=== PATIENT | female | born 1945 | race African-American/Black ===

== ENCOUNTER 2019-12-19 14:09 | Inpatient (IN) | payer MEDICARE, OTHER ==
[2019-12-19] MEDS ORDERED: Acetaminophen 650 MG Suppository PR PRN (20:23)
[2019-12-19 20:50] LABS: Anion Gap 15 mmol/L (10-20); BUN (Urea Nitrogen) 50 mg/dL (9.8-20.1); Calc. Creatinine Clearance 0 mL/min (70-130); Calcium 8.5 mg/dL (7.8-10.44); Carbon Dioxide 15 mmol/L (23-31); Chloride 112 mmol/L (98-107); Estimated GFR-MDRD 24; Glucose 82 mg/dL (83-110); Magnesium 2.3 mg/dL (1.6-2.6); Potassium 5.2 mmol/L (3.5-5.1); Sodium 137 mmol/L (136-145)
[2019-12-19] MEDS ORDERED: Dextrose 5% in Water 1,000 ML IV PRN (20:55)
[2019-12-19] MEDS ORDERED: Dextrose 50% Abboject 50 ML SYRINGE SLOW IVP PRN (20:55)
[2019-12-19] MEDS ORDERED: Benzonatate 100 MG CAP PO PRN (21:26)
[2019-12-19] MEDS ORDERED: guaiFENesin 200 MG TAB PO PRN (21:26)
[2019-12-19] MEDS: Sodium Chloride 0.9% 1,000 ML IV SCH (22:29)
[2019-12-19] MEDS: Acetaminophen 325 MG TAB PO PRN (22:30)
[2019-12-19 22:53] VITALS: BMI 32.2
--- NOTE | 2019-12-19 23:17 | ULT ---
BILATERAL LOWER EXTREMITY VENOUS DUPLEX STUDY: Date: 12/19/2019 INDICATION: Lower extremity pain and edema. Elevated D-Dimer. FINDINGS: Deep veins of both lower extremities evaluated with ultrasound and Doppler, with color Doppler, spect ral analysis, and compression. Deep veins of both lower extremities show normal blood flow and compression. No evidence of deep veno us thrombosis. IMPRESSION: Negative bilateral lower extremity venous duplex study. POS: AGW
[2019-12-20 00:15] LABS: Bilirubin Negative (Negative); Blood, Urine Negative (Negative); Clarity Clear (Clear); Glucose, Urine (Dipstick) Normal (Negative); Ketone, Urine Negative (Negative); Leukocyte Negative Leu/uL (Negative); Nitrite Negative (Negative); Protein, Urine (Dipstick) 100 mg/dL (Neg-Trace); RBC/HPF 0-3 HPF (0-3); Specific Gravity, Urine 1.013 (1.002-1.036); Squamous Epithelial 0-3 HPF (0-3); Urobilinogen Normal mg/dL (Less than 2); WBC/HPF 0-3 HPF (0-3); pH, Urine 5.5 (5.0-9.0)
[2019-12-20 00:16] LABS: Bacteria/HPF Rare-Few HPF (None Seen)
[2019-12-20 00:17] LABS: Urine Culture Reflex No No
[2019-12-20 05:21] LABS: #Lymphocytes 1.6 thou/uL (1.20-3.40); #Monocytes 0.3 thou/uL (0.11-0.59); #Neutrophils 3.4 thou/uL (1.40-6.50); %Basophils 0.2 % (0.0-1.0); %Eosinophils 0.1 % (0.0-10.0); %Monocytes 6.3 % (0.0-10.0); %Neutrophils 63.4 % (42.0-75.0); Hemoglobin 8.4 g/dL (12.0-16.0); Mean Corpuscular HGB CONC 30.6 g/dL (32.0-36.0); Mean Corpuscular Hemoglobin 27.3 pg (27.0-31.0); Mean Corpuscular Volume 89.3 fL (78.0-98.0); Mean Platelet Volume 8.2 fL (7.4-10.4); Platelet Count 343 thou/uL (130-400); RBC Distribution Width 14.8 % (11.5-14.5); Red Blood Cell (RBC) Count 3.07 mill/uL (4.20-5.40); White Blood Cell (WBC) Count 5.4 thou/uL (4.8-10.8)
[2019-12-20 05:31] LABS: Anion Gap 15 mmol/L (10-20); BUN (Urea Nitrogen) 47 mg/dL (9.8-20.1); Calc. Creatinine Clearance 27 mL/min (70-130); Calcium 7.9 mg/dL (7.8-10.44); Carbon Dioxide 17 mmol/L (23-31); Chloride 111 mmol/L (98-107); Estimated GFR-MDRD 26; Glucose 74 mg/dL (83-110); Potassium 4.8 mmol/L (3.5-5.1); Sodium 138 mmol/L (136-145)
--- NOTE | 2019-12-20 06:51 | HP ---
TIME OF ASSESSMENT: 2000 hours. CHIEF COMPLAINT: Cough and is feeling generally unwell. HISTORY OF PRESENT ILLNESS: Ms. Pham is a 74-year-old woman who was initially seen at the emergency department in [place] when she presented with complaints of feeling generally weak and tired for the last 3 days. She had been seen in the ER at that time and tested for COVID, which has come back positive. The patient states that she continues to have a poor appetite. Denies any nausea or vomiting. Reports having a cough productive of yellow phlegm. Denies any hemoptysis. She has been feeling feverish at home, but has not taken her temperature. Denies any chest pain, palpitations, or shortness of breath. Has not had any changes with her bowel movements or urine. She had laboratory studies done in the emergency department that showed she had acute on chronic renal failure with a creatinine of 3.24 and GFR of 17. The patient also noted to have an elevated D-dimer, but due to the renal function, could not have a CT angiogram done. She was treated with Lovenox and a V/Q scan was ordered. She also received 1 amp of sodium bicarb and 1 g of calcium gluconate. Her laboratory studies indicated a bicarb of 14, chloride of 108, and calcium of 8.3. Her CBC is notable for a white count of 5.4, hemoglobin 9.2, hematocrit 30.7, platelets 325, neutrophils 16% and 4% bands. She had a chest x-ray done, which showed no significant acute intrathoracic disease. On arrival to the emergency department here, she received 1 L of normal saline. PAST MEDICAL HISTORY: 1. CAD. 2. GERD. 3. Hypertension. 4. Diabetes mellitus. 5. Hyperlipidemia. 6. Anxiety. PAST SURGICAL HISTORY: Coronary artery stent in the past. SOCIAL HISTORY: The patient denies any tobacco use, alcohol consumption, or illicit drug use. She lives with her family at home and is fully independent. FAMILY HISTORY: Mother had a history of coronary artery disease and in her 60s. ALLERGIES: CODEINE CAUSES HALLUCINATION. CURRENT MEDICATIONS: 1. Ranexa. 2. Clonidine. 3. Clopidogrel. 4. Omeprazole. 5. Diltiazem. 6. Atorvastatin. 7. Linzess. 8. Garlic. 9. Aspirin. 10. . 11. Nifedipine. PHYSICAL EXAMINATION: GENERAL: The patient appears tired, but is in no acute distress. She is found resting comfortably on the stretcher, but very agitated over waiting a long time to go up to her room and states she has not been fed and is also thirsty. VITAL SIGNS: Temperature 99.8, pulse 72, blood pressure 165/69, respirations 22, O2 saturation 94% on room air. HEENT: Normocephalic and atraumatic. Pupils are equal, round, reactive to light. Sclerae icterus. Oropharynx is clear. NECK: Supple. No lymphadenopathy. LUNGS: Clear to auscultation bilaterally without any wheezes, rales, or rhonchi. CARDIAC: Regular rate and rhythm. ABDOMEN: Soft, nontender, nondistended. Normoactive bowel sounds present. No guarding or rigidity. No renal angle tenderness. EXTREMITIES: No lower leg swelling or edema. NEUROLOGICAL: Alert and oriented x3. SKIN: Warm and dry. INVESTIGATIONS: As mentioned above in HPI. IMPRESSION AND PLAN: Ms. Pham is a 74-year-old woman being admitted for management of the followin. Acute renal failure. The patient with a BUN of 56, creatinine of 3.24, GFR of 17, compared to GFR being in the mid 40s in 2016. No recent labs for comparison, but the patient also appears clinically dehydrated. She has been given 1 L of normal saline since arriving to the emergency department here. We will continue with IV fluids. We will monitor her renal function and repeat BMP now to assess for improvement in her renal function. She is awaiting imaging for possible pulmonary embolism. 2. Elevated D-dimer. V/Q scan has been ordered as GFR is for CT angiogram. We will obtain venous Dopplers to rule out deep venous thrombosis, and if positive, we will go ahead and continue Lovenox, which was started over at [place]. Otherwise, we will hold off on further anticoagulation. 3. Leukocytosis with bandemia. The patient with a cough productive of yellow sputum. However, chest x-ray is unremarkable. She has been tested for COVID and positive per test done at [place] [facility] 3 days ago. We will obtain urinalysis to rule out any underlying urinary tract infection. 4. Hypertension. Monitor blood pressure and reconcile home medications once verified. 5. Hyperlipidemia. Reconcile , which she takes at home. 6. Gastroesophageal reflux disease. We will resume omeprazole, which she takes at home. 7. Diabetes mellitus. Reconcile home medications and monitor blood glucose. 8. Coronary artery disease. Reconcile home medications and continue to monitor troponin. The patient had a negative troponin done at outside emergency room and repeat has been ordered by emergency department physician. 9. General weakness. We will place consultation with Physical Therapy and Occupational Therapy. We will also add orthostatic vital signs to ensure the patient is not orthostatic. 10. Code status is full. Surrogate decision maker is her daughter, Darcie Pham. Job ID: [id number]
[2019-12-20] MEDS ORDERED: Famotidine 20 MG TAB PO SCH (09:00)
[2019-12-20] MEDS: Cholecalciferol 1,000 UNITS (25 MCG) TAB PO SCH (09:54)
[2019-12-20] MEDS: Thiamine 100 MG TAB PO SCH (09:54)
[2019-12-20] MEDS: Zinc Sulfate 220 MG CAP PO SCH (09:54)
[2019-12-20] MEDS: Ascorbic Acid 500 mg Chewable Tablet PO SCH (09:54)
--- NOTE | 2019-12-20 11:11 | PDOC.HOSPP ---
- Subjective Encounter Date: 12/20/19 Encounter Time: 11:09 Subjective: Patient states she feels much better after resting all night. She had spiked her temp early hours this morning and has not had any more spikes in her temperature since then. Denies any complaints. States her cough has settled. Known to be COVID +. Blood cultures were done and thus far show no growth. UA was negative. CXR done yesterday also unremarkable. No skin changes/wounds. - Objective Vital Signs & Weight: Vital Signs (12 hours) Temp Pulse Resp BP Pulse Ox 12/20/19 09:50 99.1 F 70 32 H 163/72 H 100 12/20/19 04:00 99.0 F 72 22 H 155/71 H 95 12/20/19 00:07 99.5 F 77 24 H 133/60 95 Weight Weight 170 lb 11.2 oz Result Diagrams: 12/20/19 04:54 12/20/19 04:54 Radiology Reviewed by me: Yes EKG Reviewed by me: Yes Hospitalist ROS - Review of Systems Constitutional: reports: fever (overnight, improved. Low grade temp since then. ), other (fatigue, improving compared to yesterday) Eyes: denies: pain, vision change, conjunctivae inflammation, eyelid inflammation, redness, other ENT: denies: ear pain, ear discharge, nose pain, nose discharge, nose congestion , mouth pain, mouth swelling, throat pain, throat swelling, other Respiratory: reports: cough (improving, productive for yellow sputum yesterday evening.) Cardiovascular: denies: chest pain, palpitations, orthopnea, paroxysmal noc. dyspnea, edema, light headedness, other Gastrointestinal: denies: nausea, vomiting, abdominal pain, diarrhea, constipation, melena, hematochezia, other Genitourinary: denies: dysuria, frequency, incontinence, hematuria, retention, other Musculoskeletal: denies: neck pain, shoulder pain, arm pain, back pain, hand pain, leg pain, foot pain, other Skin: denies: rash, lesions, daysi, bruising, other Neurological: denies: weakness, numbness, incoordination, change in speech, confusion, seizures, other - Medication Medications: Active Medications Generic Name Dose Route Start Last Admin Trade Name Freq PRN Reason Stop Dose Admin Acetaminophen 650 mg 12/19/19 20:23 12/19/19 22:30 Tylenol PO 650 mg Q4H PRN Administration Headache/Fever/Mild Pain (1-3) Ascorbic Acid 1,000 mg 12/20/19 09:00 12/20/19 09:54 Vitamin C PO 1,000 mg DAILY MARLEN Administration Cholecalciferol 1,000 units 12/20/19 09:00 12/20/19 09:54 Vitamin D3 PO 1,000 units DAILY MARLEN Administration Sodium Chloride 1,000 mls @ 70 mls/hr 12/19/19 21:00 12/19/19 22:29 Normal Saline 0.9% IV 1,000 mls .[id number] MARLEN Administration Thiamine HCl 100 mg 12/20/19 09:00 12/20/19 09:54 Thiamine PO 100 mg DAILY MARLEN Administration Zinc Sulfate 220 mg 12/20/19 09:00 12/20/19 09:54 Zinc Sulfate PO 220 mg DAILY MARLEN Administration - Exam General Appearance: NAD, awake alert Eye: PERRL, anicteric sclera ENT: normocephalic atraumatic, moist mucosa Neck: supple, symmetric, no lymphadenopathy Heart: RRR, no murmur, no rubs, normal peripheral pulses Respiratory: CTAB, no wheezes, no rales, no ronchi, normal chest expansion Gastrointestinal: soft, non-tender, non-distended, normal bowel sounds Extremities: no edema Skin: normal turgor, no lesions, no rashes Neurological: cranial nerve grossly intact, normal sensation to touch, no weakness Musculoskeletal: normal tone, normal strength, no muscle wasting Psychiatric: normal affect, normal behavior, A&O x 3 Hosp A/P (1) Fever Code(s): R50.9 - FEVER, UNSPECIFIED Status: Acute Plan: Continues with low grade temp, no further spikes in temp since early hours this morning. Blood cultures without growth thus far. UA and CXR negative. She has a productive cough for yellows sputum. No other potential source for infection. Fever could be due to viral infection. 1. Sputum cultures requested. 2. CT chest without contrast to assess for pneumonia. 3. Lactic acid and procalcitonin. 4. Continue Tylenol for fever. (2) Tachypnea Code(s): R06.82 - TACHYPNEA, NOT ELSEWHERE CLASSIFIED Status: Acute Plan: RR elevated this am. Patient denies feeling SOB. Had an elevated d-dimer, VQ scan and Lovenox per ED notes but not done. Venous doppler negative for DVT. Will obtain CTA if renal function improved. If not will order VQ scan. ABG ordered as well (3) COVID-19 virus detected Code(s): U07.1 - COVID-19 Status: Acute Plan: Maintaining sats, no SOB, no tachypnea. Patient feeling better and without any complaints. Repeat Ferritin and CRP with tomorrows AM labs. (4) Anemia Code(s): D64.9 - ANEMIA, UNSPECIFIED Status: Chronic Plan: Trending down, could be dilutional after fluids given. No signs or symptoms of GI bleed. Will repeat H/H now. If further decline will plan to transfuse and check stool for occult blood. Iron studies ordered as well. (5) Acute on chronic renal insufficiency Code(s): N28.9 - DISORDER OF KIDNEY AND URETER, UNSPECIFIED; N18.9 - CHRONIC KIDNEY DISEASE, UNSPECIFIED Status: Acute Plan: No significant improvement with AM labs, however patient had not had anything to eat or drink while in the ED. Will repeat renal function. Continue gentle hydration. Consider nephrology consult if no improvement. (6) Diabetes mellitus Code(s): E11.9 - TYPE 2 DIABETES MELLITUS WITHOUT COMPLICATIONS Status: Chronic Plan: Continue to monitor glucose. ISS sliding scale. (7) GERD (gastroesophageal reflux disease) Code(s): K21.9 - GASTRO-ESOPHAGEAL REFLUX DISEASE WITHOUT ESOPHAGITIS Status: Acute - Plan PT/OT
[2019-12-20] MEDS ORDERED: Sodium Chloride 0.9% 1,000 ML IV SCH (11:17)
[2019-12-20] MEDS: Sodium Chloride 0.9% 1,000 ML IV SCH (11:28)
[2019-12-20 11:55] LABS: Hemoglobin 9.3 g/dL (12.0-16.0)
[2019-12-20 12:17] LABS: Lactic Acid 0.7 mmol/L (0.5-2.2)
[2019-12-20 12:49] LABS: Albumin 3.5 g/dL (3.4-4.8); Anion Gap 15 mmol/L (10-20); BUN (Urea Nitrogen) 48 mg/dL (9.8-20.1); BUN/Creatinine Ratio 21.33; Calc. Creatinine Clearance 27 mL/min (70-130); Calcium 8.6 mg/dL (7.8-10.44); Carbon Dioxide 16 mmol/L (23-31); Chloride 112 mmol/L (98-107); Estimated GFR-MDRD 26; Glucose 85 mg/dL (83-110); Iron 12 ug/dL (50-170); Iron Binding Capacity, Total 154 mcg/dL (265-497); Phosphorus 3.9 mg/dL (2.3-4.7); Potassium 5.1 mmol/L (3.5-5.1); Sodium 138 mmol/L (136-145)
[2019-12-20 13:38] LABS: Actual Bicarbonate (HCO3a) 16.6 mEq/L (22-28); Base Excess (BEa) -7.6 mEq/L (-2.0 to +3.0); CO2 Tension 29.5 mmHg (35.0-45.0); Calcium, Ionized (arterial) 1.15 mmol/L (1.12-1.30); Carboxyhemoglobin (COHb) 1.1 gm% (0.0-3.0); Hemoglobin (Hb) 10.4 g/dL (12.0-16.0); Potassium - ABG Lab 5.18 mmol/L (3.70-5.30); pH, Arterial 7.37 (7.35-7.45)
[2019-12-20 13:57] LABS: Puncture Site RRAD
[2019-12-20] MEDS ORDERED: cloNIDine 0.2 MG TAB PO PRN ×2 (14:39→18:01)
[2019-12-20] MEDS ORDERED: Dexamethasone 10 MG/ML VIAL SLOW IVP SCH (14:45)
[2019-12-20] MEDS: hydrALAZINE 25 MG TAB PO SCH ×2 (15:00→20:29)
[2019-12-20] MEDS: Acetaminophen 325 MG TAB PO PRN (15:00)
[2019-12-20] MEDS: Labetalol 100 MG TAB PO SCH ×2 (15:00→20:29)
[2019-12-20 18:45] LABS: Actual Bicarbonate (HCO3a) 15.3 mEq/L (22-28); Analyzer IN Cardio OR; CO2 Tension 27.8 mmHg (35.0-45.0); Calcium, Ionized (arterial) 1.14 mmol/L (1.12-1.30); Carboxyhemoglobin (COHb) 1.3 gm% (0.0-3.0); O2 Tension (PaO2), arterial 90.6 mmHg (> 70.0); Potassium - ABG Lab 5.08 mmol/L (3.70-5.30); pH, Arterial 7.36 (7.35-7.45)
[2019-12-20 18:49] LABS: Puncture Site RRA
[2019-12-20] MEDS: Atorvastatin Calcium 40 MG TAB PO SCH (20:29)
[2019-12-21 05:09] LABS: Anion Gap 14 mmol/L (10-20); BUN (Urea Nitrogen) 52 mg/dL (9.8-20.1); CRP (Inflammatory) 10.28 mg/dL (= or < 0.5); Calc. Creatinine Clearance 27 mL/min (70-130); Calcium 8.4 mg/dL (7.8-10.44); Carbon Dioxide 16 mmol/L (23-31); Chloride 111 mmol/L (98-107); Estimated GFR-MDRD 26; Glucose 139 mg/dL (83-110); Sodium 136 mmol/L (136-145)
[2019-12-21 06:54] LABS: Hemoglobin 8.1 g/dL (12.0-16.0); Mean Corpuscular Hemoglobin 26.9 pg (27.0-31.0); Mean Corpuscular Volume 89.6 fL (78.0-98.0); Platelet Count 392 thou/uL (130-400); RBC Distribution Width 14.6 % (11.5-14.5); Red Blood Cell (RBC) Count 3.02 mill/uL (4.20-5.40); White Blood Cell (WBC) Count 5.6 thou/uL (4.8-10.8)
[2019-12-21 08:32] LABS: #Lymphocytes 0.7 thou/uL (1.20-3.40); #Monocytes 0.2 thou/uL (0.11-0.59); #Neutrophils 4.8 thou/uL (1.40-6.50); %Eosinophils 0.1 % (0.0-10.0); %Lymphocytes 11.7 % (21.0-51.0); %Monocytes 2.7 % (0.0-10.0); %Neutrophils 85.5 % (42.0-75.0); Anisocytosis MODERATE=16-30 cells (100X) (0-5/hpf); MDiff Complete? YES; Schistocytes SLIGHT = 2-5 cells (100X) (0-1/hpf)
[2019-12-21] MEDS: Cholecalciferol 1,000 UNITS (25 MCG) TAB PO SCH (08:38)
[2019-12-21] MEDS: NIFEdipine XL 90 MG TAB PO SCH ×2 (08:38→11:17)
[2019-12-21] MEDS: Clopidogrel Bisulfate 75 MG TAB PO SCH (08:38)
[2019-12-21] MEDS: Labetalol 100 MG TAB PO SCH ×4 (08:38→21:02)
[2019-12-21] MEDS: Thiamine 100 MG TAB PO SCH (08:38)
[2019-12-21] MEDS: Aspirin 81 mg Enteric Coated Tablet PO SCH (08:38)
[2019-12-21] MEDS: hydrALAZINE 25 MG TAB PO SCH ×5 (08:38→21:01)
[2019-12-21] MEDS: Ascorbic Acid 500 mg Chewable Tablet PO SCH (08:38)
[2019-12-21] MEDS: Famotidine 20 MG TAB PO SCH (08:38)
[2019-12-21] MEDS: Loratadine 10 MG TAB PO SCH (08:38)
[2019-12-21] MEDS: Dexamethasone 4 mg/ml Vial SLOW IVP SCH (08:39)
[2019-12-21] MEDS ORDERED: Sodium Chloride 0.9% 500 ML IV SCH (09:00)
--- NOTE | 2019-12-21 09:05 | PDOC.HOSPP ---
- Subjective Encounter Date: 12/21/19 Encounter Time: 12:30 Subjective: pt up in bed no complains - Objective Vital Signs & Weight: Vital Signs (12 hours) Temp Pulse Resp BP Pulse Ox 12/21/19 08:38 57 L 12/21/19 04:32 97.9 F 57 L 28 H 117/58 L 97 12/21/19 00:07 98.1 F 60 22 H 124/59 L 100 Weight Weight 170 lb 11.2 oz I&O: 12/20/19 12/21/19 12/22/19 06:59 06:59 06:59 Intake Total 1160 Output Total 800 Balance 360 Result Diagrams: 12/21/19 04:27 12/21/19 04:27 Additional Labs: Accuchecks 12/20/19 12/20/19 12/20/19 20:40 15:58 11:17 POC Glucose 214 H 103 104 Hospitalist ROS - Review of Systems Cardiovascular: denies: chest pain, palpitations, orthopnea, paroxysmal noc. dyspnea, edema, light headedness, other Gastrointestinal: denies: nausea, vomiting, abdominal pain, diarrhea, constipation, melena, hematochezia, other Genitourinary: denies: dysuria, frequency, incontinence, hematuria, retention, other - Medication Medications: Active Medications Generic Name Dose Route Start Last Admin Trade Name Freq PRN Reason Stop Dose Admin Acetaminophen 650 mg 12/19/19 20:23 12/20/19 15:00 Tylenol PO 650 mg Q4H PRN Administration Headache/Fever/Mild Pain (1-3) Ascorbic Acid 1,000 mg 12/20/19 09:00 12/21/19 08:38 Vitamin C PO 1,000 mg DAILY MARLEN Administration Aspirin 81 mg 12/21/19 09:00 12/21/19 08:38 Ecotrin PO 81 mg DAILY MARLEN Administration Atorvastatin Calcium 40 mg 12/20/19 21:00 12/20/19 20:29 Lipitor PO 40 mg HS MARLEN Administration Cholecalciferol 1,000 units 12/20/19 09:00 12/21/19 08:38 Vitamin D3 PO 1,000 units DAILY MARLEN Administration Clopidogrel Bisulfate 75 mg 12/21/19 09:00 12/21/19 08:38 Plavix PO 75 mg DAILY MARLEN Administration Dexamethasone 6 mg 12/21/19 09:00 12/21/19 08:39 Decadron SLOW IVP 6 mg DAILY MARLEN Administration Famotidine 20 mg 12/21/19 09:00 12/21/19 08:38 Pepcid PO 20 mg 0900 MARLEN Administration Hydralazine HCl 100 mg 12/20/19 15:00 12/21/19 08:38 Apresoline PO 100 mg TID MARLEN Administration Loratadine 10 mg 12/21/19 09:00 12/21/19 08:38 Claritin PO 10 mg DAILY MARLEN Administration Ranolazine 500 mg 12/20/19 21:00 12/21/19 08:38 Ranexa PO 500 mg BID MARLEN Administration Thiamine HCl 100 mg 12/20/19 09:00 12/21/19 08:38 Thiamine PO 100 mg DAILY MARLEN Administration Zinc Sulfate 220 mg 12/20/19 09:00 12/20/19 09:54 Zinc Sulfate PO 220 mg DAILY MARLEN Administration - Exam Neck: negative: supple, symmetric, no JVD, no thyromegaly, no lymphadenopathy, no carotid bruit, JVD Heart: negative: RRR, no murmur, no gallops, no rubs, normal peripheral pulses, irregular, diminshed peripheral pulses, murmur present, II/IV, III/IV Respiratory: rhonchi Gastrointestinal: negative: soft, non-tender, non-distended, normal bowel sounds , no palpable masses, no hepatomegaly, no splenomegaly, no bruit, no guarding, no rigidity, tender to palpation, distended, diminished bowl sounds, voluntary guarding Hosp A/P (1) Acute on chronic renal insufficiency Code(s): N28.9 - DISORDER OF KIDNEY AND URETER, UNSPECIFIED; N18.9 - CHRONIC KIDNEY DISEASE, UNSPECIFIED Status: Acute (2) COVID-19 virus detected Code(s): U07.1 - COVID-19 Status: Acute (3) GERD (gastroesophageal reflux disease) Code(s): K21.9 - GASTRO-ESOPHAGEAL REFLUX DISEASE WITHOUT ESOPHAGITIS Status: Acute (4) Diabetes mellitus Code(s): E11.9 - TYPE 2 DIABETES MELLITUS WITHOUT COMPLICATIONS Status: Chronic (5) Anemia Code(s): D64.9 - ANEMIA, UNSPECIFIED Status: Chronic (6) Hypertension Code(s): I10 - ESSENTIAL (PRIMARY) HYPERTENSION Status: Acute - Plan pt bradycardia will decrease bp meds that affect HR. will get retic count/ldh she has some schistocytes. Her bili and lfts are normal. Her bun is significantly elevated. will check occult blood. will hold nephrotoxins. DVT ppx on lovenox. will give her a bolus and see if her creatinine improves. will order renal ultrasound. Her iron is low will replace. will add sodium bicarb for her acidosis. vit b12 high.
[2019-12-21] MEDS ORDERED: Iron Sucrose Complex 100 MG in Sodium Chloride 0.9% 100 ML IVPB SCH (09:15)
[2019-12-21] MEDS ORDERED: Polyethylene Glycol 3350 17 GM Packet PO SCH (09:30)
[2019-12-21] MEDS ORDERED: Ferrous Gluconate 324 MG TAB PO SCH (09:30)
[2019-12-21] MEDS: Zinc Sulfate 220 MG CAP PO SCH (09:32)
[2019-12-21] MEDS ORDERED: Sodium Bicarbonate Tab 325 MG TAB PO SCH ×2 (09:45→12:15)
[2019-12-21 09:53] LABS: Reticulocyte Count 1.5 % (0.5-1.5)
[2019-12-21] MEDS ORDERED: Iron, Sodium Ferric Gluconate 125 MG in Sodium Chloride 0.9% 100 ML IVPB SCH (10:00)
[2019-12-21] MEDS: Enoxaparin Sodium 30 MG/0.3 ML SYRINGE SC SCH (10:21)
[2019-12-21] MEDS: Atorvastatin Calcium 40 MG TAB PO SCH (21:01)
[2019-12-21] MEDS: Sodium Bicarbonate Tab 325 MG TAB PO SCH (23:02)
[2019-12-22 05:45] LABS: CRP (Inflammatory) 4.91 mg/dL (= or < 0.5); Magnesium 2.5 mg/dL (1.6-2.6)
[2019-12-22 05:46] LABS: ALT (SGPT) 8 U/L (8-55); AST (SGOT) 18 U/L (5-34); Albumin 3.1 g/dL (3.4-4.8); Alkaline Phosphatase 52 U/L (40-110); Anion Gap 14 mmol/L (10-20); BUN (Urea Nitrogen) 61 mg/dL (9.8-20.1); Bilirubin, Total 0.3 mg/dL (0.2-1.2); Calc. Creatinine Clearance 28 mL/min (70-130); Calcium 8.2 mg/dL (7.8-10.44); Carbon Dioxide 17 mmol/L (23-31); Chloride 112 mmol/L (98-107); Estimated GFR-MDRD 26; Glucose 115 mg/dL (83-110); Potassium 5.5 mmol/L (3.5-5.1); Protein, Total 7.1 g/dL (6.0-8.3); Sodium 137 mmol/L (136-145)
[2019-12-22 06:50] LABS: Band 15 % (5-11); Hemoglobin 8.5 g/dL (12.0-16.0); Lymphocytes 4 % (21-51); MDiff Complete? YES; Mean Corpuscular HGB CONC 31.9 g/dL (32.0-36.0); Mean Corpuscular Hemoglobin 28.8 pg (27.0-31.0); Mean Corpuscular Volume 90.3 fL (78.0-98.0); Mean Platelet Volume 7.6 fL (7.4-10.4); Monocytes 4 % (0-10); Neutrophil 77 % (42-75); Platelet Count 464 thou/uL (130-400); RBC Distribution Width 14.7 % (11.5-14.5); Red Blood Cell (RBC) Count 2.93 mill/uL (4.20-5.40); White Blood Cell (WBC) Count 12.1 thou/uL (4.8-10.8)
[2019-12-22] MEDS: Thiamine 100 MG TAB PO SCH (08:01)
[2019-12-22] MEDS: hydrALAZINE 25 MG TAB PO SCH ×3 (08:01→21:10)
[2019-12-22] MEDS: Ferrous Gluconate 324 MG TAB PO SCH (08:02)
[2019-12-22] MEDS: Clopidogrel Bisulfate 75 MG TAB PO SCH (08:02)
[2019-12-22] MEDS: Ascorbic Acid 500 mg Chewable Tablet PO SCH (08:02)
[2019-12-22] MEDS: Loratadine 10 MG TAB PO SCH (08:03)
[2019-12-22] MEDS: Labetalol 100 MG TAB PO SCH ×2 (08:04→21:11)
[2019-12-22] MEDS: Aspirin 81 mg Enteric Coated Tablet PO SCH (08:04)
[2019-12-22] MEDS: Cholecalciferol 1,000 UNITS (25 MCG) TAB PO SCH (08:04)
[2019-12-22] MEDS: NIFEdipine XL 90 MG TAB PO SCH (08:04)
[2019-12-22] MEDS: Dexamethasone 4 mg/ml Vial SLOW IVP SCH (08:05)
[2019-12-22] MEDS: Polyethylene Glycol 3350 17 GM Packet PO SCH (08:06)
[2019-12-22] MEDS: Enoxaparin Sodium 30 MG/0.3 ML SYRINGE SC SCH (08:12)
[2019-12-22] MEDS: Famotidine 20 MG TAB PO SCH (08:12)
[2019-12-22] MEDS: Zinc Sulfate 220 MG CAP PO SCH (08:17)
[2019-12-22] MEDS: Sodium Bicarbonate Tab 325 MG TAB PO SCH ×2 (08:17→21:10)
--- NOTE | 2019-12-22 12:00 | RAD ---
PORTABLE CHEST ONE VIEW: 12/22/19 11:17 a.m. HISTORY: COVID positive. Hypoxia. COMPARISON: 12/19/2019 FINDINGS: The heart size is stable. New patchy infiltrates have developed in the interim bilaterally, right gre ater than left. No pneumothoraces or pleural effusions are seen. IMPRESSION: Findings suspicious for COVID 19 pneumonia. POS: GAYATRIA
[2019-12-22] MEDS: HumaLOG 300 UNITS/3 ML VIAL SC PRN (13:02)
[2019-12-22] MEDS: Acetaminophen 325 MG TAB PO PRN (16:21)
[2019-12-22] MEDS ORDERED: guaiFENesin ER 600 MG TAB PO SCH (17:00)
--- NOTE | 2019-12-22 17:28 | PDOC.HOSPP ---
- Subjective Encounter Date: 12/22/19 Encounter Time: 17:00 Subjective: THe patient states she feels a bit better. She is still congested and feels that she is unable to cough up the phlegm. She is asking for mucinex and orange juice The patient has received kayexelate, she has not had a bowel movement yet - Objective Vital Signs & Weight: Vital Signs (12 hours) Temp Pulse Resp BP BP Pulse Ox 12/22/19 16:05 97.2 F L 58 L 14 93/52 L 93 L 12/22/19 16:03 58 L 93/52 L 12/22/19 12:58 96.3 F L 58 L 13 90/53 L 12/22/19 08:38 97.7 F 66 14 147/66 H 96 12/22/19 08:04 60 12/22/19 08:03 98 12/22/19 08:01 60 Weight Weight 170 lb 11.2 oz I&O: 12/21/19 12/22/19 12/23/19 06:59 06:59 06:59 Intake Total 1160 480 240 Output Total 800 500 Balance 360 -20 240 Result Diagrams: 12/22/19 04:54 12/22/19 04:54 Additional Labs: Accuchecks 12/22/19 12/21/19 12:56 21:13 POC Glucose 200 H 167 H Hospitalist ROS - Review of Systems Constitutional: denies: fever, chills - Medication Medications: Active Medications Generic Name Dose Route Start Last Admin Trade Name Freq PRN Reason Stop Dose Admin Acetaminophen 650 mg 12/19/19 20:23 12/22/19 16:21 Tylenol PO 650 mg Q4H PRN Administration Headache/Fever/Mild Pain (1-3) Ascorbic Acid 1,000 mg 12/20/19 09:00 12/22/19 08:02 Vitamin C PO 1,000 mg DAILY MARLEN Administration Aspirin 81 mg 12/21/19 09:00 12/22/19 08:04 Ecotrin PO 81 mg DAILY MARLEN Administration Atorvastatin Calcium 40 mg 12/20/19 21:00 12/21/19 21:01 Lipitor PO 40 mg HS MARLEN Administration Cholecalciferol 1,000 units 12/20/19 09:00 12/22/19 08:04 Vitamin D3 PO 1,000 units DAILY MARLEN Administration Clonidine 0.2 mg 12/20/19 18:01 12/21/19 16:15 Catapres PO 0.2 mg TIDPRN PRN Administration Hypertension Clopidogrel Bisulfate 75 mg 12/21/19 09:00 12/22/19 08:02 Plavix PO 75 mg DAILY MARLEN Administration Dexamethasone 6 mg 12/21/19 09:00 12/22/19 08:05 Decadron SLOW IVP 6 mg DAILY MARLEN Administration Enoxaparin Sodium 30 mg 12/21/19 09:00 12/22/19 08:12 Lovenox SC 30 mg 899 MARLEN Administration Famotidine 20 mg 12/21/19 09:00 12/22/19 08:12 Pepcid PO 20 mg 09 MARLEN Administration Ferrous Gluconate 324 mg 12/22/19 08:00 12/22/19 08:02 Fergon PO 324 mg QAM-WM MARLEN Administration Hydralazine HCl 75 mg 12/21/19 09:00 12/22/19 16:03 Apresoline PO Not Given TID [facility] Insulin Human Lispro 0 units 12/19/19 20:55 12/22/19 13:02 Humalog SC 2 unit .MILD SLIDING SCALE PRN Administration Mild Correctional Scale Labetalol HCl 50 mg 12/21/19 09:00 12/22/19 08:04 Normodyne PO 50 mg BID [facility] Administration Loratadine 10 mg 12/21/19 09:00 12/22/19 08:03 Claritin PO 10 mg DAILY MARLEN Administration Nifedipine 90 mg 12/21/19 09:01 12/22/19 08:04 Procardia Xl PO 90 mg DAILY [facility] Administration Polyethylene Glycol 17 gm 12/22/19 09:00 12/22/19 08:06 Miralax PO 17 gm DAILY MARLEN Administration Ranolazine 500 mg 12/20/19 21:00 12/22/19 08:04 Ranexa PO 500 mg BID MARLEN Administration Sodium Bicarbonate 650 mg 12/21/19 21:00 12/22/19 08:17 Bicarbonate, Sodium PO 12/23/19 09:01 650 mg BID MARLEN Administration Thiamine HCl 100 mg 12/20/19 09:00 12/22/19 08:01 Thiamine PO 100 mg DAILY MARLEN Administration Zinc Sulfate 220 mg 12/20/19 09:00 12/22/19 08:17 Zinc Sulfate PO 220 mg DAILY MARLEN Administration - Exam General Appearance: NAD, awake alert Eye: PERRL, anicteric sclera ENT: normocephalic atraumatic, no oropharyngeal lesions Neck: no JVD Heart: RRR, no murmur, no gallops, no rubs Respiratory: CTAB, no wheezes, no rales, no ronchi Gastrointestinal: soft, non-tender, non-distended, normal bowel sounds Extremities: no cyanosis, no clubbing, no edema Skin: normal turgor, no lesions, no rashes Neurological: cranial nerve grossly intact, normal sensation to touch, no focal deficits, no new deficit Musculoskeletal: normal tone, normal strength, no muscle wasting Psychiatric: normal affect, normal behavior, A&O x 3, oriented to person Hosp A/P - Plan This is a 74 year old female who presented with COVID pneumonia Acute hypoxic respiratory failure secondary to COVID - currently on 2L nasal cannula - WBC increasing to 12. Will order ceftriaxone and azithromycin - continue dexamethasone - add mucinex Hyperkalemia - potassium 5.5, given kayexelate, Repeat BMP after bowel movement CKD - creatinine 2.21, baseline 1.45 four years ago - this may be her new baseline - UA unremarkable Hypertension - controlled - continue hydralazine, labetalol and nifedipine Code status: full code
[2019-12-22] MEDS: Azithromycin 250 MG TAB PO SCH (18:48)
[2019-12-22] MEDS: cefTRIAXone\\ROCEPHIN 1 GM in Sodium Chloride 0.9% 100 ML IVPB SCH (18:48)
--- NOTE | 2019-12-22 20:07 | CON ---
DATE OF CONSULTATION: 12/22/2019 REASON FOR CONSULTATION: COVID pneumonia. HISTORY OF PRESENT ILLNESS: A 74-year-old, who has a history of type 2 diabetes , GERD, hyperlipidemia, and hypertension and on December 15, she came to the emergency room requesting for to be tested for COVID. At that time, there had been some exposure event and she was feeling general malaise, had not had any other symptoms at the time. The vital signs were essentially normal. She is afebrile. O2 saturations were 97 on room air. It is not clear if the test was done or not, but she was released home. Three days later, she returned still with fatigue and worsening weakness and dyspnea after walking short distances. Actually, the COVID test had been submitted and it turned positive by the time she returned three days later. At this time, her vital signs still with normal findings except that the O2 saturations are down to 92 in room air. The lung exam this time was abnormal with inspiratory crackles in the right lower lobe. She was transferred to [facility] ER and admitted. The patient is currently receiving Decadron 6 mg daily and antihypertensive medications and other medications. She is actually looking pretty comfortable at rest. She denies any headaches. No visual symptoms, sore throat , odynophagia, or dysphagia. No dyspnea. Little cough. No chest pain. No abdominal pain or diarrhea. No genitourinary symptoms. No joint symptoms. No neurological symptoms. PAST MEDICAL HISTORY: Includes coronary artery disease, type 2 diabetes, and hypertension. ALLERGIES: CODEINE. SOCIAL HISTORY: Lives with son. Never smoker. FAMILY HISTORY: Noncontributory. PHYSICAL EXAMINATION: VITAL SIGNS: Temperature is a 100.4, BP 90/53, pulse 58 to 66, breathing 13 to 14, and O2 saturations are 96% on 2 L nasal cannula. She had been a 2.5 and even at 4 earlier, but now she is down to 2 L nasal cannula. HEENT: Ocular movements conjugate. Oral cavity with quite a few missing teeth. NECK: Supple. LUNGS: Symmetric air entry. No crackles or wheezing. HEART: S1 and S2. Regular rate. No S3 or S4. ABDOMEN: Soft, not distended or tender. No ascites. No bladder distention. EXTREMITIES: No joint inflammatory activity. Moves extremities equally. NEUROLOGIC: Cognitive function appears to be stable. Speech is normal. She can speak in full sentences without difficulty. LABORATORY DATA: White cell count is up to 12,000, hemoglobin 8.5, platelets 564, and 15% bands. A pH of 7.36, pCO2 of 27, and pO2 of 90. Sodium 137, potassium 5.5, and creatinine is at 2.21, which is down from admission when it was 2.42. Liver profile normal. CRP is down from 9.67 to 4.91 and ferritin is stable at 5400. Chest x-ray with patchy infiltrates bilaterally, right greater than left. Microbiology with coag-negative Staph, one out two samples, likely contaminant. ASSESSMENT AND PLAN: 1. Type 2 diabetes, coronary artery disease, and hypertension. 2. COVID pneumonia, [id number]. Continue Decadron. I do not think she needs convalescent plasma yet. She is not eligible for Remdesivir. Continue monitoring inflammatory markers. No other complications are noted at this point in time. Job ID: [id number] [id number]
[2019-12-22] MEDS: guaiFENesin ER 600 MG TAB PO SCH (21:10)
[2019-12-22] MEDS: Atorvastatin Calcium 40 MG TAB PO SCH (21:10)
[2019-12-22 22:34] LABS: Anion Gap 15 mmol/L (10-20); BUN (Urea Nitrogen) 73 mg/dL (9.8-20.1); Calc. Creatinine Clearance 21 mL/min (70-130); Calcium 8.2 mg/dL (7.8-10.44); Carbon Dioxide 18 mmol/L (23-31); Chloride 111 mmol/L (98-107); Estimated GFR-MDRD 19; Glucose 176 mg/dL (83-110); Potassium 5.2 mmol/L (3.5-5.1); Sodium 139 mmol/L (136-145)
[2019-12-23 05:08] LABS: Hemoglobin 8.6 g/dL (12.0-16.0); Mean Corpuscular HGB CONC 30.7 g/dL (32.0-36.0); Mean Corpuscular Hemoglobin 27.5 pg (27.0-31.0); Mean Corpuscular Volume 89.5 fL (78.0-98.0); Platelet Count 545 thou/uL (130-400); RBC Distribution Width 14.8 % (11.5-14.5); Red Blood Cell (RBC) Count 3.12 mill/uL (4.20-5.40); White Blood Cell (WBC) Count 15.7 thou/uL (4.8-10.8)
[2019-12-23 05:37] LABS: Anion Gap 16 mmol/L (10-20); BUN (Urea Nitrogen) 70 mg/dL (9.8-20.1); Calc. Creatinine Clearance 24 mL/min (70-130); Calcium 8.3 mg/dL (7.8-10.44); Carbon Dioxide 17 mmol/L (23-31); Chloride 113 mmol/L (98-107); Estimated GFR-MDRD 22; Glucose 94 mg/dL (83-110); Potassium 5.2 mmol/L (3.5-5.1); Sodium 141 mmol/L (136-145)
[2019-12-23] MEDS: Ascorbic Acid 500 mg Chewable Tablet PO SCH (09:03)
[2019-12-23] MEDS: Ferrous Gluconate 324 MG TAB PO SCH (09:03)
[2019-12-23] MEDS: Aspirin 81 mg Enteric Coated Tablet PO SCH (09:03)
[2019-12-23] MEDS: Cholecalciferol 1,000 UNITS (25 MCG) TAB PO SCH (09:04)
[2019-12-23] MEDS: Dexamethasone 4 mg/ml Vial SLOW IVP SCH (09:04)
[2019-12-23] MEDS: Clopidogrel Bisulfate 75 MG TAB PO SCH (09:04)
[2019-12-23] MEDS: Enoxaparin Sodium 30 MG/0.3 ML SYRINGE SC SCH (09:04)
[2019-12-23] MEDS: Famotidine 20 MG TAB PO SCH (09:05)
[2019-12-23] MEDS: guaiFENesin ER 600 MG TAB PO SCH ×2 (09:05→21:08)
[2019-12-23] MEDS: hydrALAZINE 25 MG TAB PO SCH ×3 (09:05→21:08)
[2019-12-23] MEDS: Labetalol 100 MG TAB PO SCH ×2 (09:05→21:08)
[2019-12-23] MEDS: Loratadine 10 MG TAB PO SCH (09:06)
[2019-12-23] MEDS: NIFEdipine XL 90 MG TAB PO SCH (09:06)
[2019-12-23] MEDS: Polyethylene Glycol 3350 17 GM Packet PO SCH (09:07)
[2019-12-23] MEDS: Sodium Bicarbonate Tab 325 MG TAB PO SCH (09:07)
[2019-12-23] MEDS: Zinc Sulfate 220 MG CAP PO SCH (09:07)
[2019-12-23] MEDS: Thiamine 100 MG TAB PO SCH (09:07)
[2019-12-23] MEDS ORDERED: Furosemide 20 MG/2 ML VIAL SLOW IVP SCH (13:30)
[2019-12-23] MEDS: Azithromycin 250 MG TAB PO SCH (17:14)
[2019-12-23] MEDS: cefTRIAXone\\ROCEPHIN 1 GM in Sodium Chloride 0.9% 100 ML IVPB SCH (17:14)
[2019-12-23] MEDS: methylPREDNISolone Sod Succ 40 MG VIAL IVP SCH (17:14)
--- NOTE | 2019-12-23 18:21 | PDOC.HOSPP ---
- Subjective Encounter Date: 12/23/19 Encounter Time: 12:00 Subjective: Patient states that she still has been unable to clear up the phlegm. She states mucinex did not help The patient states she quit smoking a week ago but had been smoking for years. SHe does not know if she has emphysema - Objective Vital Signs & Weight: Vital Signs (12 hours) Temp Pulse Resp BP BP BP BP 12/23/19 15:09 67 22 H 12/23/19 14:19 65 12/23/19 11:46 98.6 F 65 24 H 144/64 H 12/23/19 11:30 12/23/19 10:48 134/55 L 145/65 H 128/55 L 12/23/19 09:00 98.7 F 71 24 H 154/73 H 12/23/19 08:01 BP BP BP Pulse Ox Pulse Ox Pulse Ox Pulse Ox 12/23/19 15:09 146/65 H 98 12/23/19 14:19 12/23/19 11:46 93 L 12/23/19 11:30 134/55 L 128/55 L 144/65 H 12/23/19 10:48 88 L 91 L 88 L 12/23/19 09:00 95 12/23/19 08:01 99 Weight Weight 170 lb 11.2 oz I&O: 12/22/19 12/23/19 12/24/19 06:59 06:59 06:59 Intake Total 480 670 700 Output Total 500 1 400 Balance -20 669 300 Result Diagrams: 12/23/19 04:32 12/23/19 04:32 Additional Labs: Accuchecks 12/23/19 12/23/19 12/23/19 17:29 11:44 05:30 POC Glucose 138 H 144 H 102 12/22/19 12/22/19 20:01 16:29 POC Glucose 165 H 140 H Hospitalist ROS - Review of Systems Constitutional: denies: fever, chills - Medication Medications: Active Medications Generic Name Dose Route Start Last Admin Trade Name Freq PRN Reason Stop Dose Admin Acetaminophen 650 mg 12/19/19 20:23 12/22/19 16:21 Tylenol PO 650 mg Q4H PRN Administration Headache/Fever/Mild Pain (1-3) Ascorbic Acid 1,000 mg 12/20/19 09:00 12/23/19 09:03 Vitamin C PO 1,000 mg DAILY MARLEN Administration Aspirin 81 mg 12/21/19 09:00 12/23/19 09:03 Ecotrin PO 81 mg DAILY MARLEN Administration Atorvastatin Calcium 40 mg 12/20/19 21:00 12/22/19 21:10 Lipitor PO 40 mg HS MARLEN Administration Azithromycin 250 mg 12/22/19 18:00 12/23/19 17:14 Zithromax PO 12/25/19 18:01 250 mg 1800 MARLEN Administration Cholecalciferol 1,000 units 12/20/19 09:00 12/23/19 09:04 Vitamin D3 PO 1,000 units DAILY MARLEN Administration Clonidine 0.2 mg 12/20/19 18:01 12/21/19 16:15 Catapres PO 0.2 mg TIDPRN PRN Administration Hypertension Clopidogrel Bisulfate 75 mg 12/21/19 09:00 12/23/19 09:04 Plavix PO 75 mg DAILY MARLEN Administration Enoxaparin Sodium 30 mg 12/21/19 09:00 12/23/19 09:04 Lovenox SC 30 mg 0900 MARLEN Administration Famotidine 20 mg 12/21/19 09:00 12/23/19 09:05 Pepcid PO 20 mg 0900 MARLEN Administration Ferrous Gluconate 324 mg 12/22/19 08:00 12/23/19 09:03 Fergon PO 324 mg QAM-WM [facility] Administration Guaifenesin 600 mg 12/22/19 21:00 12/23/19 09:05 Mucinex PO 600 mg Q12HR [facility]LEN Administration Hydralazine HCl 75 mg 12/21/19 09:00 12/23/19 14:19 Apresoline PO 75 mg TID [facility]LEN Administration Ceftriaxone Sodium 1 gm/ 100 mls @ 0 mls/hr 12/22/19 18:00 12/23/19 17:14 Sodium Chloride IVPB 100 mls 1800 [facility] Administration Insulin Human Lispro 0 units 12/19/19 20:55 12/22/19 13:02 Humalog SC 2 unit .MILD SLIDING SCALE PRN Administration Mild Correctional Scale Labetalol HCl 50 mg 12/21/19 09:00 12/23/19 09:05 Normodyne PO 50 mg BID [facility] Administration Loratadine 10 mg 12/21/19 09:00 12/23/19 09:06 Claritin PO 10 mg DAILY MARLEN Administration Methylprednisolone Sodium Succinate 40 mg 12/23/19 18:00 12/23/19 17:14 Solu-Medrol IVP 40 mg Q6HR [facility]LEN Administration Nifedipine 90 mg 12/21/19 09:01 12/23/19 09:06 Procardia Xl PO 90 mg DAILY [facility]LEN Administration Polyethylene Glycol 17 gm 12/22/19 09:00 12/23/19 09:07 Miralax PO 17 gm DAILY [facility]LEN Administration Ranolazine 500 mg 12/20/19 21:00 12/23/19 09:07 Ranexa PO 500 mg BID MARLEN Administration Sodium Chloride 10 ml 12/19/19 20:23 12/23/19 09:08 Flush - Normal Saline IVF 10 ml Q12HR PRN Administration Saline Flush Sodium Chloride 10 ml 12/19/19 20:23 12/23/19 14:19 Flush - Normal Saline IVF 10 ml PRN PRN Administration Saline Flush Thiamine HCl 100 mg 12/20/19 09:00 12/23/19 09:07 Thiamine PO 100 mg DAILY MARLEN Administration Zinc Sulfate 220 mg 12/20/19 09:00 12/23/19 09:07 Zinc Sulfate PO 220 mg DAILY MARLEN Administration - Exam General Appearance: NAD, awake alert Eye: PERRL, anicteric sclera ENT: normocephalic atraumatic, no oropharyngeal lesions Neck: no JVD Heart: RRR, no murmur, no gallops, no rubs Respiratory: no ronchi Respiratory - other findings: mildly diminished breath sounds at base, slight exp wheeze top Gastrointestinal: soft, non-tender, non-distended, normal bowel sounds Extremities: no cyanosis, no clubbing, no edema Skin: normal turgor, no lesions, no rashes Neurological: cranial nerve grossly intact, normal sensation to touch, no focal deficits, no new deficit Musculoskeletal: normal tone, normal strength, no muscle wasting Hosp A/P - Plan This is a 74 year old female who presented with COVID pneumonia Acute hypoxic respiratory failure secondary to COVID - currently on 2L nasal cannula - WBC increasing to 15. Could be from steroids. Continue ceftriaxone and azithromycin -switch to solumedrol 40 q6 - trial of 20 mg IV lasix Hyperkalemia -improved, potassium down to 5.2 - will give another dose of kayexelate WANG on CKD - creatinine worsened to 2.92, then improved to 2.55 - trial 20 mg iv lasix Hypertension - controlled - continue hydralazine, labetalol and nifedipine Dispo: pending ability to wean off oxygen, improvement in hyperkalemia Code status: full code
[2019-12-23] MEDS: Atorvastatin Calcium 40 MG TAB PO SCH (21:08)
[2019-12-24] MEDS: methylPREDNISolone Sod Succ 40 MG VIAL IVP SCH ×5 (00:27→23:49)
[2019-12-24 05:22] LABS: Hemoglobin 8.3 g/dL (12.0-16.0); Mean Corpuscular HGB CONC 30.1 g/dL (32.0-36.0); Mean Corpuscular Hemoglobin 27.1 pg (27.0-31.0); Mean Corpuscular Volume 89.8 fL (78.0-98.0); Mean Platelet Volume 7.7 fL (7.4-10.4); Platelet Count 559 thou/uL (130-400); RBC Distribution Width 15.2 % (11.5-14.5); Red Blood Cell (RBC) Count 3.08 mill/uL (4.20-5.40); White Blood Cell (WBC) Count 15.2 thou/uL (4.8-10.8)
[2019-12-24 05:49] LABS: ALT (SGPT) 10 U/L (8-55); AST (SGOT) 17 U/L (5-34); Albumin 3.1 g/dL (3.4-4.8); Alkaline Phosphatase 54 U/L (40-110); Anion Gap 15 mmol/L (10-20); BUN (Urea Nitrogen) 63 mg/dL (9.8-20.1); Bilirubin, Total 0.3 mg/dL (0.2-1.2); CRP (Inflammatory) 7.19 mg/dL (= or < 0.5); Calc. Creatinine Clearance 28 mL/min (70-130); Calcium 8.1 mg/dL (7.8-10.44); Carbon Dioxide 19 mmol/L (23-31); Chloride 111 mmol/L (98-107); Estimated GFR-MDRD 27; Globulin 4.1 g/dL (2.4-3.5); Glucose 158 mg/dL (83-110); Potassium 4.2 mmol/L (3.5-5.1); Protein, Total 7.2 g/dL (6.0-8.3); Sodium 141 mmol/L (136-145)
[2019-12-24] MEDS: HumaLOG 300 UNITS/3 ML VIAL SC PRN ×2 (06:31→12:00)
[2019-12-24] MEDS: Ferrous Gluconate 324 MG TAB PO SCH (08:03)
[2019-12-24] MEDS: Clopidogrel Bisulfate 75 MG TAB PO SCH (08:03)
[2019-12-24] MEDS: Aspirin 81 mg Enteric Coated Tablet PO SCH (08:03)
[2019-12-24] MEDS: Cholecalciferol 1,000 UNITS (25 MCG) TAB PO SCH (08:03)
[2019-12-24] MEDS: Ascorbic Acid 500 mg Chewable Tablet PO SCH (08:03)
[2019-12-24] MEDS: Enoxaparin Sodium 30 MG/0.3 ML SYRINGE SC SCH (08:04)
[2019-12-24] MEDS: guaiFENesin ER 600 MG TAB PO SCH ×2 (08:04→21:05)
[2019-12-24] MEDS: Famotidine 20 MG TAB PO SCH (08:04)
[2019-12-24] MEDS: hydrALAZINE 25 MG TAB PO SCH ×3 (08:04→21:05)
[2019-12-24] MEDS: Labetalol 100 MG TAB PO SCH ×2 (08:05→21:05)
[2019-12-24] MEDS: NIFEdipine XL 90 MG TAB PO SCH (08:05)
[2019-12-24] MEDS: Polyethylene Glycol 3350 17 GM Packet PO SCH (08:05)
[2019-12-24] MEDS: Loratadine 10 MG TAB PO SCH (08:05)
[2019-12-24] MEDS: Thiamine 100 MG TAB PO SCH (08:06)
[2019-12-24] MEDS: Zinc Sulfate 220 MG CAP PO SCH (08:06)
--- NOTE | 2019-12-24 15:22 | RAD ---
PORTABLE CHEST ONE VIEW: 12/24/19 at 2:51 p.m. HISTORY: COVID pneumonia. FINDINGS: Comparison made with exam of 12/22/19. Bilateral patchy opacities are again seen with interval improvement on the right and mild worsening o n the left. No pneumothoraces or pleural effusions are identified. IMPRESSION: Findings are consistent with COVID-19 pneumonia. POS: [facility]
[2019-12-24] MEDS: Azithromycin 250 MG TAB PO SCH (16:38)
[2019-12-24] MEDS: cefTRIAXone\\ROCEPHIN 1 GM in Sodium Chloride 0.9% 100 ML IVPB SCH (16:38)
--- NOTE | 2019-12-24 18:32 | PDOC.HOSPP ---
- Subjective Encounter Date: 12/24/19 Encounter Time: 11:00 Subjective: Per nursing patient was hypoxic to 83% on room air. She states she feels a bit better, has some more energy. She is eating her meals She still has trouble getting her cough up - Objective Vital Signs & Weight: Vital Signs (12 hours) Temp Pulse Pulse Pulse Pulse Resp BP 12/24/19 15:55 12/24/19 15:54 98.9 F 72 24 H 12/24/19 15:27 95 12/24/19 12:05 97.7 F 95 20 12/24/19 12:00 12/24/19 09:55 74 73 68 143/67 H 12/24/19 08:20 98.6 F 69 22 H 12/24/19 08:05 69 12/24/19 08:04 69 BP BP BP BP BP BP Pulse Ox 12/24/19 15:55 88 L 12/24/19 15:54 156/72 H 95 12/24/19 15:27 12/24/19 12:05 136/63 95 12/24/19 12:00 143/67 H 137/66 128/60 12/24/19 09:55 137/66 128/60 12/24/19 08:20 152/70 H 94 L 12/24/19 08:05 12/24/19 08:04 Pulse Ox Pulse Ox Pulse Ox 12/24/19 15:55 12/24/19 15:54 12/24/19 15:27 12/24/19 12:05 12/24/19 12:00 12/24/19 09:55 94 L 95 98 12/24/19 08:20 12/24/19 08:05 12/24/19 08:04 Weight Weight 170 lb 11.2 oz I&O: 12/23/19 12/24/19 12/25/19 06:59 06:59 06:59 Intake Total 670 1000 700 Output Total 1 700 600 Balance 669 300 100 Result Diagrams: 12/24/19 04:58 12/24/19 04:58 Additional Labs: Accuchecks 12/24/19 12/24/19 12/24/19 16:53 12:00 06:05 POC Glucose 155 H 253 H 158 H 12/23/19 21:22 POC Glucose 166 H Hospitalist ROS - Review of Systems Constitutional: denies: fever, chills - Medication Medications: Active Medications Generic Name Dose Route Start Last Admin Trade Name Freq PRN Reason Stop Dose Admin Acetaminophen 650 mg 12/19/19 20:23 12/22/19 16:21 Tylenol PO 650 mg Q4H PRN Administration Headache/Fever/Mild Pain (1-3) Ascorbic Acid 1,000 mg 12/20/19 09:00 12/24/19 08:03 Vitamin C PO 1,000 mg DAILY MARLEN Administration Aspirin 81 mg 12/21/19 09:00 12/24/19 08:03 Ecotrin PO 81 mg DAILY [facility] Administration Atorvastatin Calcium 40 mg 12/20/19 21:00 12/23/19 21:08 Lipitor PO 40 mg HS [facility]LEN Administration Azithromycin 250 mg 12/22/19 18:00 12/24/19 16:38 Zithromax PO 12/25/19 18:01 250 mg 1800 [facility] Administration Cholecalciferol 1,000 units 12/20/19 09:00 12/24/19 08:03 Vitamin D3 PO 1,000 units DAILY [facility] Administration Clonidine 0.2 mg 12/20/19 18:01 12/21/19 16:15 Catapres PO 0.2 mg TIDPRN PRN Administration Hypertension Clopidogrel Bisulfate 75 mg 12/21/19 09:00 12/24/19 08:03 Plavix PO 75 mg DAILY [facility] Administration Enoxaparin Sodium 30 mg 12/21/19 09:00 12/24/19 08:04 Lovenox SC 30 mg 0900 [facility] Administration Famotidine 20 mg 12/21/19 09:00 12/24/19 08:04 Pepcid PO 20 mg 0900 [facility] Administration Ferrous Gluconate 324 mg 12/22/19 08:00 12/24/19 08:03 Fergon PO 324 mg QAM-WM [facility] Administration Guaifenesin 600 mg 12/22/19 21:00 12/24/19 08:04 Mucinex PO 600 mg Q12HR [facility] Administration Hydralazine HCl 75 mg 12/21/19 09:00 12/24/19 15:27 Apresoline PO 75 mg TID [facility] Administration Ceftriaxone Sodium 1 gm/ 100 mls @ 0 mls/hr 12/22/19 18:00 12/24/19 16:38 Sodium Chloride IVPB 100 mls 1800 [facility] Administration Insulin Human Lispro 0 units 12/19/19 20:55 12/24/19 12:00 Humalog SC 4 unit .MILD SLIDING SCALE PRN Administration Mild Correctional Scale Labetalol HCl 50 mg 12/21/19 09:00 12/24/19 08:05 Normodyne PO 50 mg BID [facility]LEN Administration Loratadine 10 mg 12/21/19 09:00 12/24/19 08:05 Claritin PO 10 mg DAILY [facility] Administration Methylprednisolone Sodium Succinate 40 mg 12/23/19 18:00 12/24/19 16:38 Solu-Medrol IVP 40 mg Q6HR [facility] Administration Nifedipine 90 mg 12/21/19 09:01 12/24/19 08:05 Procardia Xl PO 90 mg DAILY [facility] Administration Polyethylene Glycol 17 gm 12/22/19 09:00 12/24/19 08:05 Miralax PO 17 gm DAILY [facility] Administration Ranolazine 500 mg 12/20/19 21:00 12/24/19 08:06 Ranexa PO 500 mg BID [facility] Administration Sodium Chloride 10 ml 12/19/19 20:23 12/23/19 09:08 Flush - Normal Saline IVF 10 ml Q12HR PRN Administration Saline Flush Sodium Chloride 10 ml 12/19/19 20:23 12/24/19 11:50 Flush - Normal Saline IVF 10 ml PRN PRN Administration Saline Flush Thiamine HCl 100 mg 12/20/19 09:00 12/24/19 08:06 Thiamine PO 100 mg DAILY [facility]LEN Administration Zinc Sulfate 220 mg 12/20/19 09:00 12/24/19 08:06 Zinc Sulfate PO 220 mg DAILY MARLEN Administration - Exam General Appearance: NAD, awake alert Eye: PERRL, anicteric sclera ENT: normocephalic atraumatic, no oropharyngeal lesions Neck: no JVD Heart: RRR, no murmur, no gallops, no rubs Respiratory: no wheezes, no rales, no ronchi Respiratory - other findings: dec breath sounds at the bases Gastrointestinal: soft, non-tender, non-distended, normal bowel sounds Extremities: no cyanosis, no clubbing, no edema Hosp A/P - Plan This is a 74 year old female who presented with COVID pneumonia Acute hypoxic respiratory failure secondary to COVID - currently on 2L nasal cannula - WBC still 15.2. Started ceftriaxone and azithromycin 12/21, continue for now - continue solumedrol 40 mg q6 - continue mucinex bid - albuterol inhaler prn - s/p one dose lasix 12/22 - continue weaning off oxygen as tolerated WANG on CKD - creatinine improving to 2.18 - will monitor for improvement for one more day Hyperkalemia - resolved Hypertension - controlled - continue hydralazine, labetalol and nifedipine Dispo: pending ability to wean off oxygen Code status: full code
[2019-12-24] MEDS: Atorvastatin Calcium 40 MG TAB PO SCH (21:06)
[2019-12-25] MEDS: methylPREDNISolone Sod Succ 40 MG VIAL IVP SCH (05:07)
[2019-12-25] MEDS: HumaLOG 300 UNITS/3 ML VIAL SC PRN ×4 (05:09→20:25)
[2019-12-25 05:40] LABS: Hemoglobin 8.6 g/dL (12.0-16.0); Mean Corpuscular HGB CONC 31.1 g/dL (32.0-36.0); Mean Corpuscular Hemoglobin 28.2 pg (27.0-31.0); Mean Corpuscular Volume 90.7 fL (78.0-98.0); Mean Platelet Volume 7.5 fL (7.4-10.4); Platelet Count 620 thou/uL (130-400); Red Blood Cell (RBC) Count 3.06 mill/uL (4.20-5.40); White Blood Cell (WBC) Count 17.5 thou/uL (4.8-10.8)
[2019-12-25 05:54] LABS: Anion Gap 15 mmol/L (10-20); BUN (Urea Nitrogen) 67 mg/dL (9.8-20.1); Calc. Creatinine Clearance 28 mL/min (70-130); Calcium 8.5 mg/dL (7.8-10.44); Carbon Dioxide 20 mmol/L (23-31); Chloride 112 mmol/L (98-107); Estimated GFR-MDRD 27; Glucose 146 mg/dL (83-110); Potassium 4.3 mmol/L (3.5-5.1); Sodium 143 mmol/L (136-145)
[2019-12-25] MEDS: Polyethylene Glycol 3350 17 GM Packet PO SCH (07:55)
[2019-12-25] MEDS: Cholecalciferol 1,000 UNITS (25 MCG) TAB PO SCH (07:55)
[2019-12-25] MEDS: Enoxaparin Sodium 30 MG/0.3 ML SYRINGE SC SCH (07:55)
[2019-12-25] MEDS: Ascorbic Acid 500 mg Chewable Tablet PO SCH (07:55)
[2019-12-25] MEDS: Aspirin 81 mg Enteric Coated Tablet PO SCH (07:56)
[2019-12-25] MEDS: Clopidogrel Bisulfate 75 MG TAB PO SCH (07:56)
[2019-12-25] MEDS: Famotidine 20 MG TAB PO SCH (07:56)
[2019-12-25] MEDS: hydrALAZINE 25 MG TAB PO SCH ×3 (07:56→19:56)
[2019-12-25] MEDS: Thiamine 100 MG TAB PO SCH (07:56)
[2019-12-25] MEDS: NIFEdipine XL 90 MG TAB PO SCH (07:56)
[2019-12-25] MEDS: Zinc Sulfate 220 MG CAP PO SCH (07:57)
[2019-12-25] MEDS: Labetalol 100 MG TAB PO SCH ×2 (07:57→19:56)
[2019-12-25] MEDS: Ferrous Gluconate 324 MG TAB PO SCH (07:58)
[2019-12-25] MEDS: Loratadine 10 MG TAB PO SCH (07:58)
[2019-12-25] MEDS: guaiFENesin ER 600 MG TAB PO SCH ×2 (07:58→19:56)
[2019-12-25] MEDS: predniSONE 20 MG TAB PO SCH (11:07)
--- NOTE | 2019-12-25 16:04 | PDOC.HOSPP ---
- Subjective Encounter Date: 12/25/19 Encounter Time: 09:00 Subjective: The patient states she feels about the same, has slightly improved energy. She doesn't feel like she wants to go home yet. SHe has mild cough I spoke with daughter today regarding how patient is doing. Explained plan to wean oxygen. If patient needs oxygen on dc, daughter prefers patient to stay with her brother that is COVID +, however if she comes off oxygen she wants her to stay with her - Objective Vital Signs & Weight: Vital Signs (12 hours) Temp Pulse Pulse Pulse Resp BP BP 12/25/19 15:13 98.7 F 69 16 12/25/19 14:51 69 12/25/19 12:49 96.3 F L 69 24 H 12/25/19 09:35 72 75 146/68 H 143/66 H 12/25/19 08:00 97.4 F L 73 24 H 12/25/19 07:57 68 12/25/19 07:56 68 12/25/19 05:20 98.7 F 68 24 H BP BP Pulse Ox Pulse Ox Pulse Ox 12/25/19 15:13 148/98 H 97 12/25/19 14:51 12/25/19 12:49 145/68 H 97 12/25/19 09:35 97 95 12/25/19 08:00 168/95 H 93 L 12/25/19 07:57 12/25/19 07:56 12/25/19 05:20 174/79 H 98 Weight Weight 168 lb 12.8 oz I&O: 12/24/19 12/25/19 12/26/19 06:59 06:59 06:59 Intake Total 1000 940 Output Total 700 600 Balance 300 340 Result Diagrams: 12/25/19 05:00 12/25/19 05:00 Additional Labs: Accuchecks 12/25/19 12/25/19 12/24/19 11:22 05:18 21:21 POC Glucose 214 H 162 H 199 H 12/24/19 12/24/19 16:53 06:05 POC Glucose 155 H 158 H Hospitalist ROS - Review of Systems Constitutional: denies: fever, chills - Medication Medications: Active Medications Generic Name Dose Route Start Last Admin Trade Name Freq PRN Reason Stop Dose Admin Acetaminophen 650 mg 12/19/19 20:23 12/22/19 16:21 Tylenol PO 650 mg Q4H PRN Administration Headache/Fever/Mild Pain (1-3) Ascorbic Acid 1,000 mg 12/20/19 09:00 12/25/19 07:55 Vitamin C PO 1,000 mg DAILY MARLEN Administration Aspirin 81 mg 12/21/19 09:00 12/25/19 07:56 Ecotrin PO 81 mg DAILY [facility]LEN Administration Atorvastatin Calcium 40 mg 12/20/19 21:00 12/24/19 21:06 Lipitor PO 40 mg HS MARLEN Administration Azithromycin 250 mg 12/22/19 18:00 12/24/19 16:38 Zithromax PO 12/25/19 18:01 250 mg 1800 [facility] Administration Cholecalciferol 1,000 units 12/20/19 09:00 12/25/19 07:55 Vitamin D3 PO 1,000 units DAILY MARLEN Administration Clonidine 0.2 mg 12/20/19 18:01 12/21/19 16:15 Catapres PO 0.2 mg TIDPRN PRN Administration Hypertension Clopidogrel Bisulfate 75 mg 12/21/19 09:00 12/25/19 07:56 Plavix PO 75 mg DAILY MARLEN Administration Enoxaparin Sodium 30 mg 12/21/19 09:00 12/25/19 07:55 Lovenox SC 30 mg 0900 MARLEN Administration Famotidine 20 mg 12/21/19 09:00 12/25/19 07:56 Pepcid PO 20 mg 0900 [facility]LEN Administration Ferrous Gluconate 324 mg 12/22/19 08:00 12/25/19 07:58 Fergon PO 324 mg QAM-WM [facility] Administration Guaifenesin 600 mg 12/22/19 21:00 12/25/19 07:58 Mucinex PO 600 mg Q12HR [facility]LEN Administration Hydralazine HCl 75 mg 12/21/19 09:00 12/25/19 14:51 Apresoline PO 75 mg TID [facility]LEN Administration Ceftriaxone Sodium 1 gm/ 100 mls @ 0 mls/hr 12/22/19 18:00 12/24/19 16:38 Sodium Chloride IVPB 100 mls 1800 [facility] Administration Insulin Human Lispro 0 units 12/19/19 20:55 12/25/19 11:20 Humalog SC 3 unit .MILD SLIDING SCALE PRN Administration Mild Correctional Scale Labetalol HCl 50 mg 12/21/19 09:00 12/25/19 07:57 Normodyne PO 50 mg BID [facility] Administration Loratadine 10 mg 12/21/19 09:00 12/25/19 07:58 Claritin PO 10 mg DAILY [facility] Administration Nifedipine 90 mg 12/21/19 09:01 12/25/19 07:56 Procardia Xl PO 90 mg DAILY [facility] Administration Polyethylene Glycol 17 gm 12/22/19 09:00 12/25/19 07:55 Miralax PO 17 gm DAILY [facility] Administration Prednisone 40 mg 12/25/19 08:00 12/25/19 11:07 Prednisone PO 40 mg QAM-WM [facility] Administration Ranolazine 500 mg 12/20/19 21:00 12/25/19 07:56 Ranexa PO 500 mg BID MARLEN Administration Sodium Chloride 10 ml 12/19/19 20:23 12/25/19 07:58 Flush - Normal Saline IVF 10 ml Q12HR PRN Administration Saline Flush Sodium Chloride 10 ml 12/19/19 20:23 12/24/19 11:50 Flush - Normal Saline IVF 10 ml PRN PRN Administration Saline Flush Thiamine HCl 100 mg 12/20/19 09:00 12/25/19 07:56 Thiamine PO 100 mg DAILY [facility] Administration Zinc Sulfate 220 mg 12/20/19 09:00 12/25/19 07:57 Zinc Sulfate PO 220 mg DAILY [facility]LEN Administration - Exam General Appearance: NAD, awake alert Eye: PERRL, anicteric sclera ENT: normocephalic atraumatic, no oropharyngeal lesions Neck: no JVD Heart: RRR, no murmur, no gallops, no rubs Respiratory: CTAB, no wheezes, no rales, no ronchi, no tachypnea Gastrointestinal: soft, non-tender, non-distended, normal bowel sounds, no palpable masses Extremities: no cyanosis, no clubbing, no edema Skin: normal turgor, no lesions, no rashes Hosp A/P - Plan This is a 74 year old female who presented with COVID pneumonia Acute hypoxic respiratory failure secondary to COVID - currently on 2L nasal cannula - WBC up to 17. Continue ceftriaxone and azithromycin - discontinue IV steroids, switch to oral prednisone 40 mg daily - continue mucinex - albuterol inhaler prn WANG on CKD - creatinine improving to 2.18 - will monitor for improvement for one more day Hyperkalemia - resolved Hypertension - controlled - continue hydralazine, labetalol and nifedipine Dispo: pending ability to wean off oxygen Code status: full code
[2019-12-25] MEDS: cefTRIAXone\\ROCEPHIN 1 GM in Sodium Chloride 0.9% 100 ML IVPB SCH (16:54)
[2019-12-25] MEDS: Azithromycin 250 MG TAB PO SCH (16:54)
--- NOTE | 2019-12-25 18:02 | PRG ---
DATE OF SERVICE: 12/25/2019 SUBJECTIVE: Feeling better. No more coughing. Eating well. OBJECTIVE: VITAL SIGNS: She is afebrile and breathing 16 times a minute. She is at 97% on 2 L nasal cannula, blood pressure 140/90. LUNGS: Clear. HEART: S1 and S2. Regular rate. ABDOMEN: Soft, not distended. LABORATORY DATA: White cell count 17.5, hemoglobin 8.6, platelets 620. Creatinine is 2.13. Had a chest x-ray on the showed patchy opacities bilateral, some improvement noted. ASSESSMENT AND DISCUSSION: Type 2 diabetes; coronary artery disease; hypertension; COVID pneumonia, [id number], but with improvement on Decadron now and prednisone. Doses are equivalent of the therapeutic Decadron dose for COVID. Looks like she is going to make it without any further due and she would be able to go home soon. I think the neutrophilia is from the prednisone. Job ID: [id number]
[2019-12-25] MEDS: Atorvastatin Calcium 40 MG TAB PO SCH (19:55)
[2019-12-26 05:13] LABS: Hemoglobin 8.2 g/dL (12.0-16.0); Mean Corpuscular HGB CONC 31.3 g/dL (32.0-36.0); Mean Corpuscular Hemoglobin 28.2 pg (27.0-31.0); Mean Corpuscular Volume 90.1 fL (78.0-98.0); Mean Platelet Volume 7.4 fL (7.4-10.4); Platelet Count 640 thou/uL (130-400); RBC Distribution Width 15.6 % (11.5-14.5); White Blood Cell (WBC) Count 18.6 thou/uL (4.8-10.8)
[2019-12-26 05:38] LABS: ALT (SGPT) 14 U/L (8-55); AST (SGOT) 19 U/L (5-34); Albumin 3.1 g/dL (3.4-4.8); Alkaline Phosphatase 61 U/L (40-110); Anion Gap 15 mmol/L (10-20); BUN (Urea Nitrogen) 72 mg/dL (9.8-20.1); Bilirubin, Total 0.3 mg/dL (0.2-1.2); CRP (Inflammatory) 3.18 mg/dL (= or < 0.5); Calc. Creatinine Clearance 31 mL/min (70-130); Calcium 8.4 mg/dL (7.8-10.44); Carbon Dioxide 20 mmol/L (23-31); Chloride 112 mmol/L (98-107); Estimated GFR-MDRD 30; Globulin 4.1 g/dL (2.4-3.5); Glucose 128 mg/dL (83-110); Potassium 4.3 mmol/L (3.5-5.1); Protein, Total 7.2 g/dL (6.0-8.3); Sodium 143 mmol/L (136-145)
[2019-12-26] MEDS: Enoxaparin Sodium 30 MG/0.3 ML SYRINGE SC SCH (08:21)
[2019-12-26] MEDS: Cholecalciferol 1,000 UNITS (25 MCG) TAB PO SCH (08:21)
[2019-12-26] MEDS: Aspirin 81 mg Enteric Coated Tablet PO SCH (08:21)
[2019-12-26] MEDS: Zinc Sulfate 220 MG CAP PO SCH (08:21)
[2019-12-26] MEDS: NIFEdipine XL 90 MG TAB PO SCH (08:22)
[2019-12-26] MEDS: Famotidine 20 MG TAB PO SCH (08:22)
[2019-12-26] MEDS: Ascorbic Acid 500 mg Chewable Tablet PO SCH (08:22)
[2019-12-26] MEDS: Thiamine 100 MG TAB PO SCH (08:22)
[2019-12-26] MEDS: Loratadine 10 MG TAB PO SCH (08:22)
[2019-12-26] MEDS: Labetalol 100 MG TAB PO SCH ×2 (08:22→20:41)
[2019-12-26] MEDS: Clopidogrel Bisulfate 75 MG TAB PO SCH (08:23)
[2019-12-26] MEDS: Ferrous Gluconate 324 MG TAB PO SCH (08:23)
[2019-12-26] MEDS: hydrALAZINE 25 MG TAB PO SCH ×3 (08:23→20:41)
[2019-12-26] MEDS: guaiFENesin ER 600 MG TAB PO SCH ×2 (08:23→20:42)
[2019-12-26] MEDS: predniSONE 20 MG TAB PO SCH (08:23)
[2019-12-26] MEDS: Polyethylene Glycol 3350 17 GM Packet PO SCH (08:24)
--- NOTE | 2019-12-26 09:33 | RAD ---
EXAM: Single view of the chest HISTORY: Covid pneumonia COMPARISON: 12/22/2019 FINDINGS: Single view of the chest shows an enlarged but stable cardiomediastinal silhouette. Athero sclerotic calcifications are seen in the aorta. Scattered stable diffuse infiltrates are seen. The bones are unremarkable IMPRESSION: Stable multifocal infiltrates
[2019-12-26] MEDS: HumaLOG 300 UNITS/3 ML VIAL SC PRN ×3 (11:35→20:53)
[2019-12-26] MEDS: cefTRIAXone\\ROCEPHIN 1 GM in Sodium Chloride 0.9% 100 ML IVPB SCH (18:01)
--- NOTE | 2019-12-26 18:37 | PDOC.HOSPP ---
- Subjective Encounter Date: 12/26/19 Encounter Time: 09:00 Subjective: The patient is doing well. She has minimal cough. No chest pain She has maintained ambulatory sats on 93% today off oxygen - Objective Vital Signs & Weight: Vital Signs (12 hours) Temp Pulse Resp BP Pulse Ox 12/26/19 16:33 98.7 F 72 24 H 141/66 H 94 L 12/26/19 15:18 72 12/26/19 11:07 97.0 F L 72 28 H 142/67 H 93 L 12/26/19 08:25 98.4 F 73 22 H 162/77 H 97 12/26/19 08:23 69 12/26/19 08:22 69 Weight Weight 168 lb 12.8 oz I&O: 12/25/19 12/26/19 12/27/19 06:59 06:59 06:59 Intake Total 940 1000 Output Total 600 1600 Balance 340 -600 Result Diagrams: 12/26/19 04:54 12/26/19 04:54 Additional Labs: Accuchecks 12/26/19 12/26/19 12/26/19 15:29 11:01 05:19 POC Glucose 211 H 211 H 128 H 12/25/19 12/25/19 20:10 16:46 POC Glucose 229 H 166 H Hospitalist ROS - Review of Systems Constitutional: denies: fever, chills - Medication Medications: Active Medications Generic Name Dose Route Start Last Admin Trade Name Freq PRN Reason Stop Dose Admin Acetaminophen 650 mg 12/19/19 20:23 12/22/19 16:21 Tylenol PO 650 mg Q4H PRN Administration Headache/Fever/Mild Pain (1-3) Ascorbic Acid 1,000 mg 12/20/19 09:00 12/26/19 08:22 Vitamin C PO 1,000 mg DAILY [facility]LEN Administration Aspirin 81 mg 12/21/19 09:00 12/26/19 08:21 Ecotrin PO 81 mg DAILY [facility] Administration Atorvastatin Calcium 40 mg 12/20/19 21:00 12/25/19 19:55 Lipitor PO 40 mg HS [facility]LEN Administration Cholecalciferol 1,000 units 12/20/19 09:00 12/26/19 08:21 Vitamin D3 PO 1,000 units DAILY [facility] Administration Clonidine 0.2 mg 12/20/19 18:01 12/21/19 16:15 Catapres PO 0.2 mg TIDPRN PRN Administration Hypertension Clopidogrel Bisulfate 75 mg 12/21/19 09:00 12/26/19 08:23 Plavix PO 75 mg DAILY [facility] Administration Enoxaparin Sodium 30 mg 12/21/19 09:00 12/26/19 08:21 Lovenox SC 30 mg 0900 [facility]LEN Administration Famotidine 20 mg 12/21/19 09:00 12/26/19 08:22 Pepcid PO 20 mg 0900 [facility]LEN Administration Ferrous Gluconate 324 mg 12/22/19 08:00 12/26/19 08:23 Fergon PO 324 mg QAM-WM [facility] Administration Guaifenesin 600 mg 12/22/19 21:00 12/26/19 08:23 Mucinex PO 600 mg Q12HR [facility]LEN Administration Hydralazine HCl 75 mg 12/21/19 09:00 12/26/19 15:18 Apresoline PO 75 mg TID [facility] Administration Ceftriaxone Sodium 1 gm/ 100 mls @ 0 mls/hr 12/22/19 18:00 12/26/19 18:01 Sodium Chloride IVPB 100 mls 1800 [facility] Administration Insulin Human Lispro 0 units 12/19/19 20:55 12/26/19 18:01 Humalog SC 3 unit .MILD SLIDING SCALE PRN Administration Mild Correctional Scale Insulin Human Lispro 0 units 12/19/19 20:55 12/25/19 20:25 Humalog SC 2 unit .BEDTIME SLIDING SC PRN Administration Bedtime Correctional Scale Labetalol HCl 50 mg 12/21/19 09:00 12/26/19 08:22 Normodyne PO 50 mg BID [facility] Administration Loratadine 10 mg 12/21/19 09:00 12/26/19 08:22 Claritin PO 10 mg DAILY [facility] Administration Nifedipine 90 mg 12/21/19 09:01 12/26/19 08:22 Procardia Xl PO 90 mg DAILY [facility] Administration Polyethylene Glycol 17 gm 12/22/19 09:00 12/26/19 08:24 Miralax PO 17 gm DAILY [facility] Administration Prednisone 40 mg 12/25/19 08:00 12/26/19 08:23 Prednisone PO 40 mg QAM-WM [facility] Administration Ranolazine 500 mg 12/20/19 21:00 12/26/19 08:21 Ranexa PO 500 mg BID [facility] Administration Sodium Chloride 10 ml 12/19/19 20:23 12/25/19 19:55 Flush - Normal Saline IVF 10 ml Q12HR PRN Administration Saline Flush Sodium Chloride 10 ml 12/19/19 20:23 12/24/19 11:50 Flush - Normal Saline IVF 10 ml PRN PRN Administration Saline Flush Thiamine HCl 100 mg 12/20/19 09:00 12/26/19 08:22 Thiamine PO 100 mg DAILY [facility] Administration Zinc Sulfate 220 mg 12/20/19 09:00 12/26/19 08:21 Zinc Sulfate PO 220 mg DAILY [facility] Administration - Exam General Appearance: NAD, awake alert Eye: PERRL, anicteric sclera ENT: normocephalic atraumatic, no oropharyngeal lesions Neck: no JVD Heart: RRR, no murmur, no gallops, no rubs Respiratory: CTAB, no wheezes, no rales, no ronchi Gastrointestinal: soft, non-tender, non-distended, normal bowel sounds, no palpable masses Extremities: no cyanosis, no clubbing, no edema Skin: normal turgor, no lesions, no rashes Hosp A/P - Plan This is a 74 year old female who presented with COVID pneumonia Acute hypoxic respiratory failure secondary to COVID - patient was weaned down to room air, will monitor overnight - WBC continues to increase to 18. On oral prednisone 40 mg daily. Continue for total [address] Blood is aware - continue albuterol inhaler prn - continue mucinex WANG on CKD - creatinine improving to 1.99, will repeat BMP in am Hyperkalemia - resolved Hypertension - controlled - continue hydralazine, labetalol and nifedipine Dispo: pending ability to wean off oxygen Code status: full code
[2019-12-26] MEDS: Atorvastatin Calcium 40 MG TAB PO SCH (20:41)
[2019-12-27 04:49] LABS: Hemoglobin 8.3 g/dL (12.0-16.0); Mean Corpuscular Hemoglobin 27.7 pg (27.0-31.0); Mean Corpuscular Volume 92.5 fL (78.0-98.0); Mean Platelet Volume 7.4 fL (7.4-10.4); Platelet Count 650 thou/uL (130-400); RBC Distribution Width 16.1 % (11.5-14.5); Red Blood Cell (RBC) Count 3.01 mill/uL (4.20-5.40); White Blood Cell (WBC) Count 16.9 thou/uL (4.8-10.8)
[2019-12-27 05:11] LABS: Anion Gap 13 mmol/L (10-20); BUN (Urea Nitrogen) 65 mg/dL (9.8-20.1); Calc. Creatinine Clearance 36 mL/min (70-130); Calcium 7.8 mg/dL (7.8-10.44); Carbon Dioxide 20 mmol/L (23-31); Chloride 114 mmol/L (98-107); Estimated GFR-MDRD 36; Glucose 93 mg/dL (83-110); Sodium 142 mmol/L (136-145)
[2019-12-27] MEDS: Aspirin 81 mg Enteric Coated Tablet PO SCH (08:23)
[2019-12-27] MEDS: Polyethylene Glycol 3350 17 GM Packet PO SCH (08:23)
[2019-12-27] MEDS: Famotidine 20 MG TAB PO SCH (08:23)
[2019-12-27] MEDS: guaiFENesin ER 600 MG TAB PO SCH (08:24)
[2019-12-27] MEDS: Loratadine 10 MG TAB PO SCH (08:24)
[2019-12-27] MEDS: hydrALAZINE 25 MG TAB PO SCH (08:24)
[2019-12-27] MEDS: Ferrous Gluconate 324 MG TAB PO SCH (08:24)
[2019-12-27] MEDS: Labetalol 100 MG TAB PO SCH (08:25)
[2019-12-27] MEDS: Clopidogrel Bisulfate 75 MG TAB PO SCH (08:26)
[2019-12-27] MEDS: Enoxaparin Sodium 30 MG/0.3 ML SYRINGE SC SCH (08:26)
[2019-12-27] MEDS: predniSONE 20 MG TAB PO SCH (08:26)
[2019-12-27] MEDS: NIFEdipine XL 90 MG TAB PO SCH (08:27)
[2019-12-27] MEDS: Ascorbic Acid 500 mg Chewable Tablet PO SCH (08:27)
[2019-12-27] MEDS: Zinc Sulfate 220 MG CAP PO SCH (08:27)
[2019-12-27] MEDS: Thiamine 100 MG TAB PO SCH (08:28)
[2019-12-27] MEDS: Cholecalciferol 1,000 UNITS (25 MCG) TAB PO SCH (08:28)
[2019-12-27 09:01] VITALS: BP 154/68; TEMP 98.8
[2019-12-27 11:59] LABS: SARS-CoV-2 MS2 Positive; SARS-CoV-2 N Gene Positive; SARS-CoV-2 S Gene Positive; SARS-CoV-2 by NAA DETECTED (NotDetected); SARS-CoV-2 orf1ab Positive
--- NOTE | 2019-12-28 02:45 | DIS ---
DATE OF ADMISSION: 12/19/2019 DATE OF DISCHARGE: 12/27/2019 DISCHARGE DIAGNOSES: 1. Acute hypoxic respiratory failure secondary to coronavirus disease. 2. Acute kidney injury on chronic kidney disease. 3. Hyperkalemia. 4. Hypertension. CONSULTATION: Dr. Richi Blood of Infectious Disease. BRIEF HISTORY OF PRESENT ILLNESS: This is a 74-year-old female with a past medical history of CAD, who presented to the emergency room with productive cough of yellow phlegm. She also was noted to have an acute kidney injury while in the emergency room, and was given IV fluids. She also has had an elevated D-dimer, and was treated with Lovenox. She presented to the emergency room. She did test positive for COVID. She presented to emergency room for further workup. HOSPITAL COURSE: 1. Acute hypoxic respiratory failure secondary to COVID pneumonia versus possible superimposed bacterial pneumonia versus bronchitis: The patient was initially treated with dexamethasone from 11/20-11/22, however, due to persistent congestion and inability to bring up her cough, she was started on IV steroids for possible acute bronchitis. She was also treated with IV ceftriaxone and azithromycin due to increasing leukocytosis and given one dose of IV lasix with significant improvement. SHe was weaned off oxygen. She completed five days of antibiotics. She will be discharged with prednisone for an additional four days. Repeat COVID testing is pending from 11/25 at the time of discharge. She plans on staying with her son who is also COVID+ at the time of discharge. 2. Acute kidney injury: Patient presented with a creatinine of 2.42. She was given IV fluids. Eventually, her IV fluids were discontinued due to persistent multifocal infiltrates. Her creatinine improved on daily basis, and came down to 1.67 on the time of discharge. Consider repeat BMP in a week with her PCP. 3. Leukocytosis: Patient presented with a white count of 12.1, which increased to 18.6. This may have from steroids. She did receive ceftriaxone and azithromycin. Her white count came down to 16.9 at time of discharge. Consider repeat CBC in a week. DISCHARGE PHYSICAL EXAMINATION: VITAL SIGNS: Temperature 98.8, respiratory rate 22, heart rate 71, O2 saturation 93% on room air, blood pressure 154/68. GENERAL: Patient is alert, awake, oriented x3. CVS: Regular rate and rhythm with no murmurs, rubs, or gallops. LUNGS: Clear to auscultation bilaterally. ABDOMEN: Positive bowel sounds, soft, nontender, nondistended. EXTREMITIES: No edema. DIAGNOSTIC STUDIES: PERTINENT LABORATORY DATA: 1. CBC on 12/26: White count 16.9, hemoglobin 8.3, hematocrit 27.8, platelet count 650. 2. BMP on 12/26: Creatinine is 1.67, chloride 114, carbon dioxide 20. Rest of BMP unremarkable. 3. LFT on 12/25: Normal. 4. LDH: Is 396. 5. Vitamin B12: 1176. 6. Folate: 9.3. 7. Procalcitonin: 0.30. 8. TSH: 0.3477. 9. UA on 12/19: Negative. 10. COVID PCR on 12/25: Positive. IMAGIN. Venogram on 12/18: No DVT. 2. Chest x-ray on 12/21: Finding suspicious for COVID-19 pneumonia. 3. Chest x-ray on 12/23: Findings consistent with COVID pneumonia. 4. Chest x-ray on 12/25: Stable multifocal infiltrates. DISCHARGE CONDITION: Stable. ACTIVITY: As tolerated. DIET: Heart-healthy diet. DISCHARGE MEDICATIONS: Prednisone 40 mg p.o. q.a.m. for 2 more days. All other home medications were resumed. Please refer to discharge worksheet. DISCHARGE INSTRUCTIONS: The patient should follow up with her PCP in a week, and have repeat BMP done to evaluate resolution of her elevated creatinine. Also consider repeat CBC to see if her white count has resolved. She should have repeat thyroid function tests in 6 weeks since her TSH number was slightly low. She should also get a repeat chest x-ray in 6 weeks to see whether her pneumonia has resolved. Job ID: [id number] [facility]
== END 2019-12-27 12:03 | disposition home or self-care (01) | DRG 177 ==
LOC: ERS 14:09 → ERHOLD 15:15 → OBSVTOIN 15:15 → 2SW 22:13
PROVIDERS: ADMIT Emergency Medicine; ATTEND Emergency Medicine
PROC: 8E0ZXY6 Isolation (ICD-10-PCS; principal; 2019-12-19)
DX: U07.1 COVID-19 (principal); J96.01 Acute respiratory failure with hypoxia; J12.89 Other viral pneumonia; J15.9 Unspecified bacterial pneumonia; N17.9 Acute kidney failure, unspecified; E87.2 Acidosis; N18.9 Chronic kidney disease, unspecified; E87.5 Hyperkalemia; I12.9 Hypertensive chronic kidney disease with stage 1 through stage 4 chronic kidney disease, or unspecified chronic kidney disease; I25.10 Atherosclerotic heart disease of native coronary artery without angina pectoris; J20.9 Acute bronchitis, unspecified; D72.829 Elevated white blood cell count, unspecified; T38.0X5A Adverse effect of glucocorticoids and synthetic analogues, initial encounter; K21.9 Gastro-esophageal reflux disease without esophagitis; D64.9 Anemia, unspecified; E86.0 Dehydration; E11.22 Type 2 diabetes mellitus with diabetic chronic kidney disease; E78.5 Hyperlipidemia, unspecified; F41.9 Anxiety disorder, unspecified; R53.1 Weakness; Z95.5 Presence of coronary angioplasty implant and graft; Z88.5 Allergy status to narcotic agent; Z79.82 Long term (current) use of aspirin; Z79.02 Long term (current) use of antithrombotics/antiplatelets
CPT/HCPCS: 36415; 36416; 71045; 80048; 80053; 81001; 82607; 82728; 82746; 82805; 83540; 83550; 83605; 83615; 83735; 84145; 84443; 85025; 85027; 85046; 86140; 86850; 86870; 86900; 86901; 86922; 87040; 87070; 87149; 87205; 87635; 93005; 93010; 93970; 96360; 96361; J0696; J1100; J1650; J1940; J2916; J2920; J3490; J7512; U0003

== ENCOUNTER 2020-02-20 18:33 | Inpatient (IN) | payer MEDICARE, OTHER ==
[2020-02-20] MEDS ORDERED: Meclizine HCl 25 MG TAB ONE (19:03)
--- NOTE | 2020-02-20 19:18 | CT ---
Head CT without contrast 02/20/2020: COMPARISON: 10/18/2015 HISTORY: Vertigo, dizziness TECHNIQUE: Axial CT imaging at 5 mm intervals from vertex through skull base without contrast FINDINGS: The visualized paranasal sinuses/mastoid air cells are well-aerated. No displaced calvarial fracture. No intracranial hemorrhage, midline shift, mass effect, or ventricular enlargement. IMPRESSION: No intracranial hemorrhage or displaced calvarial fracture.
[2020-02-20 19:55] LABS: #Eosinphils 0.4 thou/uL (0.0-0.7); #Lymphocytes 2.1 thou/uL (1.20-3.40); #Monocytes 0.6 thou/uL (0.11-0.59); #Neutrophils 3.4 thou/uL (1.40-6.50); %Basophils 0.4 % (0.0-1.0); %Eosinophils 5.8 % (0.0-10.0); %Lymphocytes 32.4 % (21.0-51.0); %Monocytes 8.6 % (0.0-10.0); %Neutrophils 52.9 % (42.0-75.0); Hemoglobin 9.6 g/dL (12.0-16.0); Mean Corpuscular HGB CONC 31.4 g/dL (32.0-36.0); Mean Corpuscular Hemoglobin 29.3 pg (27.0-31.0); Mean Corpuscular Volume 93.4 fL (78.0-98.0); Mean Platelet Volume 8.9 fL (7.4-10.4); Platelet Count 273 thou/uL (130-400); Red Blood Cell (RBC) Count 3.28 mill/uL (4.20-5.40); White Blood Cell (WBC) Count 6.4 thou/uL (4.8-10.8)
[2020-02-20 20:20] LABS: ALT (SGPT) 7 U/L (8-55); AST (SGOT) 11 U/L (5-34); Albumin 3.7 g/dL (3.4-4.8); Alkaline Phosphatase 75 U/L (40-110); Anion Gap 15 mmol/L (10-20); BUN (Urea Nitrogen) 41 mg/dL (9.8-20.1); Bilirubin, Total 0.2 mg/dL (0.2-1.2); Calc. Creatinine Clearance 0 mL/min (70-130); Calcium 8.8 mg/dL (7.8-10.44); Carbon Dioxide 15 mmol/L (23-31); Chloride 113 mmol/L (98-107); Estimated GFR-MDRD 30; Globulin 3.5 g/dL (2.4-3.5); Glucose 89 mg/dL (83-110); Magnesium 2.1 mg/dL (1.6-2.6); Potassium 5.2 mmol/L (3.5-5.1); Protein, Total 7.2 g/dL (6.0-8.3); Sodium 138 mmol/L (136-145)
[2020-02-20 20:21] LABS: Bacteria/HPF None Seen HPF (None Seen); Bilirubin Negative (Negative); Blood, Urine Negative (Negative); Clarity Clear (Clear); Glucose, Urine (Dipstick) Normal (Negative); Ketone, Urine Negative (Negative); Leukocyte Negative Leu/uL (Negative); Nitrite Negative (Negative); Protein, Urine (Dipstick) 30 mg/dL (Neg-Trace); RBC/HPF 0-3 HPF (0-3); Specific Gravity, Urine 1.008 (1.002-1.036); Squamous Epithelial 0-3 HPF (0-3); Urobilinogen Normal mg/dL (Less than 2); WBC/HPF 0-3 HPF (0-3)
[2020-02-20] MEDS ORDERED: Lorazepam 2 MG/ML VIAL ONE (21:05)
[2020-02-20] MEDS ORDERED: Ondansetron PF 4 MG/2 ML Vial ONE (21:05)
[2020-02-20] MEDS ORDERED: Aspirin Chewable 81 MG TAB ONE (21:18)
[2020-02-20] MEDS ORDERED: Acetaminophen 325 MG TAB PO PRN (23:17)
[2020-02-20] MEDS ORDERED: Acetaminophen 650 MG Suppository PR PRN (23:17)
[2020-02-21] MEDS ORDERED: Sodium Chloride 0.9% 1,000 ML IV SCH (00:30)
[2020-02-21 02:34] LABS: #Eosinphils 0.3 thou/uL (0.0-0.7); #Lymphocytes 2.1 thou/uL (1.20-3.40); #Monocytes 0.7 thou/uL (0.11-0.59); #Neutrophils 2.8 thou/uL (1.40-6.50); %Basophils 0.7 % (0.0-1.0); %Eosinophils 5.8 % (0.0-10.0); %Lymphocytes 34.7 % (21.0-51.0); %Monocytes 11.3 % (0.0-10.0); %Neutrophils 47.5 % (42.0-75.0); Hemoglobin 8.8 g/dL (12.0-16.0); Mean Corpuscular HGB CONC 30.5 g/dL (32.0-36.0); Mean Corpuscular Hemoglobin 28.4 pg (27.0-31.0); Mean Platelet Volume 8.3 fL (7.4-10.4); Platelet Count 293 thou/uL (130-400); RBC Distribution Width 16.6 % (11.5-14.5)
[2020-02-21 02:45] LABS: INR-International Normal Ratio 1.1; Prothrombin Time 13.9 sec (12.0-14.7)
[2020-02-21 02:51] LABS: Lactic Acid 0.7 mmol/L (0.5-2.2)
[2020-02-21 03:10] LABS: ALT (SGPT) 7 U/L (8-55); AST (SGOT) 10 U/L (5-34); Albumin 3.3 g/dL (3.4-4.8); Alkaline Phosphatase 59 U/L (40-110); Anion Gap 14 mmol/L (10-20); BUN (Urea Nitrogen) 37 mg/dL (9.8-20.1); Bilirubin, Total Less than 0.2 mg/dL (0.2-1.2); Calc. Creatinine Clearance 0 mL/min (70-130); Calcium 8.5 mg/dL (7.8-10.44); Carbon Dioxide 15 mmol/L (23-31); Chloride 116 mmol/L (98-107); Estimated GFR-MDRD 37; Globulin 3.3 g/dL (2.4-3.5); Glucose 125 mg/dL (83-110); Potassium 4.6 mmol/L (3.5-5.1); Protein, Total 6.6 g/dL (6.0-8.3); Sodium 140 mmol/L (136-145)
--- NOTE | 2020-02-21 04:58 | PDOC.HHP ---
Hospitalist HPI - History of Present Illness "I feel bad" History of Present Illness: Patient presents to the ED with complaints of "feeling like my head is rowing and messing with my body". States she "feels bad" and has been for the last several weeks. Burke any spinning sensation or dizziness. Denies lightheadedness. Difficulty obtaining much information regarding her symptoms. She states she doesnt feel any pain but feels badly overall. Has not had any speech changes, vision abnormalities, no headaches. No n/v. Has not had any fevers. No chest pain, palpitation or sob. No abdominal pain. No drastic weight changes. Denies any stool changes or urinary symptoms. On assessment, patient noted to have a large right sided neck mass which she states has been there for years. States it was not there when she was a child but developed at some point. This has not been worked-up but states her PCP is aware of it. She reports it has grown but is not sure how quickly or over how long it has grown. Denies any difficulty or painful swallowing. No difficulty with her breathing. No neck pain or limited ROM. ED COURSE: EKG done in the ED showed Rate 60 right bundle branch block with evidence of LVH QTc 478 heart rate 60. Patient was admitted on 12/19/19 for COVID pneumonia as well as associated acute kidney injury. Her BUN and creatinine are slightly higher than when she was discharge suggesting mild dehydration. She was given 1L NS. Also given Meclizine for what was believed to be vertigo type of symptoms. She also received 324 mg of aspirin and 1 mg of Lorazepam for anxiety. UA unremarkable and CT head showed no intracranial hemorrhage or displaced calvarial fracture. PAST MEDICAL HISTORY: 1. CAD 2. GERD 3. HTN 4. DM, type 2 5. ANXIETY PAST SURGICAL HISTORY: 1. Cardiac stent x 1 SOCIAL HISTORY: Fully independent. Lives with her son. Uses a cane to walk. Denies any tobacco use or alcohol consumption. FAMILY HISTORY: Noncontributory. ALLERGIES: CODEINE CURRENT MEDICATIONS: 1. Ranexa 500 mg PO BID. 2. Clonidine 0.2 mg PO TID. 3. Clopidogrel 75 mg PO daily. 4. Omeprazole 40 mg PO daily. 5. Diltiazem 120 mg PO BID. 6. Atorvastatin 40 mg PO daily. 7. Linzess 290 mcg PO daily. 8. Garlic 1,000 mg PO daily. 9. Aspirin 325 mg PO daily. 10. Labetalol 100 mg PO daily. 11. Nifedipine 90 mg PO daily. Hospitalist ROS - Medication Medications: Active Medications Generic Name Dose Route Start Last Admin Trade Name Bre PRN Reason Stop Dose Admin Sodium Chloride 1,000 mls @ 65 mls/hr 02/21/20 00:30 02/21/20 02:09 Normal Saline 0.9% IV 1,000 mls .[id number] MARLEN Administration - Exam General Appearance: NAD, awake alert General - other findings: BP: 167/68, Pulse: 58, Resp: 17, Temp: 98.6 (Oral), O2 sat: 97 on RA Eye: PERRL, anicteric sclera ENT: normocephalic atraumatic, moist mucosa Neck - other findings: Large mass to entire right side of neck, firm, nontender Heart: RRR, murmur present (systolic) Respiratory: CTAB, no wheezes, no rales, no ronchi, normal chest expansion, no tachypnea Gastrointestinal: soft, non-tender, non-distended, normal bowel sounds, no palpable masses, no guarding, no rigidity Extremities: no edema Skin: normal turgor, no lesions, no rashes Neurological: cranial nerve grossly intact, normal sensation to touch Musculoskeletal: normal tone, normal strength, no muscle wasting Psychiatric: normal affect, normal behavior, A&O x 3 Hospitalist Results - Labs Result Diagrams: 02/21/20 02:21 02/21/20 02:21 Lab results: WBC 6.0 thou/uL (4.8-10.8) 02/21/20 02:21 Hgb 8.8 g/dL (12.0-16.0) L 02/21/20 02:21 Hct 28.8 % (36.0-47.0) L 02/21/20 02:21 MCV 93.0 fL (78.0-98.0) 02/21/20 02:21 Plt Count 293 thou/uL (130-400) 02/21/20 02:21 Neutrophils % 47.5 % (42.0-75.0) 02/21/20 02:21 Sodium 140 mmol/L (136-145) 09/18/20 02:21 Potassium 4.6 mmol/L (3.5-5.1) 02/21/20 02:21 Chloride 116 mmol/L (98-107) H 02/21/20 02:21 Carbon Dioxide 15 mmol/L (23-31) L 02/21/20 02:21 BUN 37 mg/dL (9.8-20.1) H 02/21/20 02:21 Creatinine 1.65 mg/dL (0.6-1.1) H 02/21/20 02:21 Glucose 125 mg/dL (83-110) H 02/21/20 02:21 Lactic Acid 0.7 mmol/L (0.5-2.2) 02/21/20 02:21 Calcium 8.5 mg/dL (7.8-10.44) 02/21/20 02:21 Total Bilirubin Less than 0.2 mg/dL (0.2-1.2) L 02/21/20 02:21 AST 10 U/L (5-34) 02/21/20 02:21 ALT 7 U/L (8-55) L 02/21/20 02:21 Alkaline Phosphatase 59 U/L (40-110) 02/21/20 02:21 Troponin I Less than 0.010 ng/mL (< 0.028) 02/20/20 19:26 Serum Total Protein 6.6 g/dL (6.0-8.3) 02/21/20 02:21 Albumin 3.3 g/dL (3.4-4.8) L 02/21/20 02:21 Urine Ketones Negative mg/dL (Negative) 02/20/20 20:03 Urine Blood Negative (Negative) 02/20/20 20:03 Urine Nitrite Negative (Negative) 02/20/20 20:03 Ur Leukocyte Esterase Negative Maria E/uL (Negative) 02/20/20 20:03 Urine RBC 0-3 HPF (0-3) 02/20/20 20:03 Urine WBC 0-3 HPF (0-3) 02/20/20 20:03 Ur Squamous Epith Cells 0-3 HPF (0-3) 02/20/20 20:03 Urine Bacteria None Seen HPF (None Seen) 02/20/20 20:03 Hospitalist H&P A/P - Problem (1) Malaise Code(s): R53.81 - OTHER MALAISE Status: Acute Assessment and Plan: Potentially associated with mild dehydration. Continue gentle IV hydration. PT/OT consult. (2) Mass of right side of neck Code(s): R22.1 - LOCALIZED SWELLING, MASS AND LUMP, NECK Status: Acute Assessment and Plan: Chronic and not worked-up in the past. Could be causing patients vague symptoms. No neuro deficits on exam. Size of mass, firmness with vascular aspect is concerning. Considered CTA H/N as patient undergoing CVA work-up per ED, however given renal function we will started with neck US. Continue to monitor renal function. Day team to decide what type of imaging would be best to proceed with. ?MRI brain/neck. vs. CT with contrast. (3) WANG (acute kidney injury) Code(s): N17.9 - ACUTE KIDNEY FAILURE, UNSPECIFIED Status: Acute Assessment and Plan: Continue gentle hydration. (4) Hyperkalemia Code(s): E87.5 - HYPERKALEMIA Status: Acute Assessment and Plan: Repeat BMP, possibly elevated due to hemoconcentration. (5) CAD (coronary artery disease) Code(s): I25.10 - ATHSCL HEART DISEASE OF [place] CORONARY ARTERY W/O ANG PCTRS Status: Chronic Assessment and Plan: Resume home meds once verified. Cardiac monitoring. (6) GERD (gastroesophageal reflux disease) Code(s): K21.9 - GASTRO-ESOPHAGEAL REFLUX DISEASE WITHOUT ESOPHAGITIS Status: Chronic Assessment and Plan: Resume omeprazole. (7) Hypertension Code(s): I10 - ESSENTIAL (PRIMARY) HYPERTENSION Status: Chronic Assessment and Plan: monitor BP, reconcile home meds as appropriate. (8) Diabetes mellitus Code(s): E11.9 - TYPE 2 DIABETES MELLITUS WITHOUT COMPLICATIONS Status: Chronic - Plan Plan: No MPOA established.
[2020-02-21] MEDS ORDERED: Dextrose 5% in Water 1,000 ML IV PRN (05:07)
[2020-02-21] MEDS ORDERED: HumaLOG 300 UNITS/3 ML VIAL SC PRN ×2 (05:07)
[2020-02-21] MEDS ORDERED: Dextrose 50% Abboject 50 ML SYRINGE SLOW IVP PRN (05:07)
[2020-02-21] MEDS ORDERED: cloNIDine 0.2 MG TAB PO PRN (05:14)
[2020-02-21] MEDS: Dextrose 5 %-0.45 % NaCl 1,000 ML IV SCH (06:39)
--- NOTE | 2020-02-21 09:09 | RAD ---
2 view chest: [02/21/2020] Comparison:12/26/2019 HISTORY: Evaluate chest, history of neck mass and vertigo FINDINGS: There is atherosclerotic calcification of the aortic arch. Coronary arterial calcification and/or stent material overlies the cardiac silhouette on the left. No pneumothorax, pleural fluid, lobar consolidation, or alveolar edema. There is scattered atherosclerotic calcification of the thora cic and abdominal aorta. IMPRESSION: No focal consolidation or alveolar edema.
--- NOTE | 2020-02-21 09:29 | ULT ---
SOFT TISSUE ULTRASOUND NECK: HISTORY: Directed ultrasound to the right neck mass is performed. The patient states this neck mass has been present for years according to the technologist. Not painful. FINDINGS: Somewhat circumscribed lobulated somewhat hypoechoic but mildly heterogeneous soft tissue mass is dodie ntified at the site of palpable abnormality. This mass measures approximately 6 cm transverse dimens ion. AP dimension is approximately 3 cm. IMPRESSION: Circumscribed somewhat lobulated soft tissue mass right neck at site of palpable concern. Consider C T Neck with contrast for further characterization. POS: OFF
[2020-02-21] MEDS: hydrALAZINE 25 MG TAB PO SCH ×3 (09:55→21:32)
[2020-02-21] MEDS: Aspirin 81 mg Enteric Coated Tablet PO SCH (09:55)
[2020-02-21] MEDS: Labetalol 100 MG TAB PO SCH ×3 (09:56→21:32)
[2020-02-21] MEDS: NIFEdipine XL 90 MG TAB PO SCH (09:56)
[2020-02-21] MEDS: Clopidogrel Bisulfate 75 MG TAB PO SCH (09:56)
[2020-02-21] MEDS: Atorvastatin Calcium 40 MG TAB PO SCH (09:56)
[2020-02-21] MEDS ORDERED: Magnevist 469MG/ML 20 ML VIAL ONE (10:14)
[2020-02-21] MEDS ORDERED: Lorazepam 2 MG/ML VIAL SLOW IVP PRN (11:36)
--- NOTE | 2020-02-21 14:09 | MRI ---
MRI OF THE BRAIN WITHOUT CONTRAST: 02/21/20 INDICATIONS: CVA evaluation. Vertigo and dizziness. FINDINGS: Ventricles have normal size and position. No evidence of restricted diffusion. There is no evidence o f acute infarct. No evidence of mass or edema. No significant white matter abnormality. No evidence o f hemorrhage. There is an empty sella noted with CSF filling a mildly enlarged sella turcica. The intracranial internal carotid arteries, proximal cerebral arteries and basilar arteries show flow voids. Dural venous sinuses appear patent. The mastoid air cells show mucosal edema, slightly more pronounced on the right. IMPRESSION: 1. No evidence of acute infarct or other acute intracranial process. 2. Empty sella. 3. Evidence of mucosal edema in the mastoid air cells. POS: OFF
--- NOTE | 2020-02-21 15:53 | MRI ---
Exam: Neck MRI with and without contrast HISTORY: Right-sided neck mass. Mass has been present for many years. COMPARISON: None CORRELATION: Soft tissue neck ultrasound 02/21/2020 TECHNIQUE: Pre and postcontrast soft tissue neck MRI is performed FINDINGS: In the right aspect of the neck, there is a T1 isointense focus measuring 6.7 x 7.2 cm. There is late ral displacement of the right sternocleidomastoid muscle and right carotid artery. There is mild splaying of the right carotid bifurcation. On the T2-weighted images, there are multiple flow voids p resent. Postcontrast images demonstrate avid enhancement. This mass measures 5.9 x 6.7 cm in the postcontrast images. There is medial extension with mass effect upon the right hypopharynx and suprag lottic larynx. There is appropriate signal intensity visualized muscles of mastication and parotid glands Thyroid gland is appropriate signal intensity Paraspinal muscles have appropriate signal intensity Appropriate signal intensity visualized cervical vertebral bodies. Visualized brain parenchyma, cervicomedullary junction, cervical cord and upper thoracic cord have a normal size and signal intensity. There is moderate central canal stenosis at C3-C4, and moderate to severe central canal stenosis C4-C5, C5-C6 and C6-C7 secondary to disc osteophyte complexes/disc h erniation. IMPRESSION: Extremely vascular mass in the right aspect of the neck. 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 There is splaying of the carotid artery which may be in due to a carotid body tumor. 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 Transcribed Date/Time: 02/21/2020 4:50 PM
--- NOTE | 2020-02-21 17:08 | CON ---
NEUROLOGY CONSULTATION DATE OF CONSULTATION: 02/21/2020 REASON FOR CONSULTATION: Dizziness. HISTORY OF PRESENT ILLNESS: Ms. Pham is a 74-year-old female with medical history significant for coronary artery disease, gastroesophageal reflux disease, hypertension, anxiety, and diabetes mellitus, presented to the emergency room with the feeling as if "my head is rowing and feels weak and cold all over. The patient denies a feeling of room spinning in front of her eyes, but does complain of lightheadedness. The patient denies any focal weakness, focal paresthesias, nausea, vomiting, headache, chest pain, abdominal pain, recent infection, or exposure to COVID. She denies any problems with speech or swallowing, blurred vision, loss of vision, or loss of consciousness associated with the episode. The patient also has a large right-sided neck mass, which has been there for years and she has never been followed up or worked up for that. She denies any difficulty in breathing. In the emergency room, EKG was done, which shows heart rate of 60 beats per minute and right bundle-branch block with evidence of left ventricular hypertrophy. She was admitted on 12/19/2019 with pneumonia as well as acute kidney injury and has received meclizine for vertigo type symptoms. In the emergency room, she received aspirin and 1 mg of lorazepam for anxiety. A head CT was done, which did not reveal any acute intracranial hemorrhage. REVIEW OF SYSTEMS: All 14 systems were reviewed and were negative except the pertinent positives and negatives mentioned in the HPI. PAST MEDICAL HISTORY: Coronary artery disease, gastroesophageal reflux disease, diabetes mellitus, hypertension, anxiety. PAST SURGICAL HISTORY: Cardiac stent x1. SOCIAL HISTORY: The patient is fully independent. She lives with her son. Uses a cane to walk. Denies alcohol, illegal drug use, or nicotine abuse. FAMILY HISTORY: No family history of stroke. ALLERGIES: CODEINE. HOME MEDICATIONS: 1. Ranexa 500 mg p.o. b.i.d. 2. Clonidine 0.2 mg p.o. b.i.d. 3. Plavix 75 mg daily. 4. Omeprazole 40 mg daily. 5. Diltiazem 120 mg daily. 6. Atorvastatin 40 mg daily. 7. Linzess 290 mg mcg daily. 8. Garlic 1000 mg daily. 9. Aspirin 325 mg daily. 10. Labetalol 100 mg daily. 11. Nifedipine 90 mg daily. - Objective Vital Signs & Weight: Vital Signs (12 hours) Temp Pulse Pulse Pulse Resp BP BP 02/21/20 19:50 98.1 F 66 16 02/21/20 16:00 97.7 F 53 L 20 02/21/20 15:17 63 141/57 H 02/21/20 12:00 98.1 F 66 22 H 02/21/20 11:04 63 66 112/57 L 02/21/20 08:49 BP BP Pulse Ox 02/21/20 19:50 145/70 H 95 02/21/20 16:00 134/54 L 93 L 02/21/20 15:17 02/21/20 12:00 114/51 L 96 02/21/20 11:04 117/52 L 02/21/20 08:49 94 L Weight Weight 182 lb 14.4 oz I&O: 02/20/20 02/21/20 02/22/20 06:59 06:59 06:59 Intake Total 1517 Output Total 625 Balance 892 Additional Labs: Accuchecks 02/21/20 02/21/20 02/21/20 20:06 16:51 10:53 POC Glucose 108 H 118 H 94 02/21/20 06:41 POC Glucose 71 Active Medications Generic Name Dose Route Start Last Admin Trade Name Adalidq PRN Reason Stop Dose Admin Aspirin 81 mg 02/21/20 09:00 02/21/20 09:55 Aspirin 81 Mg Enteric Coated Tablet PO 81 mg DAILY MARLEN Administration Atorvastatin Calcium 40 mg 02/21/20 09:00 02/21/20 09:56 Atorvastatin Calcium 40 Mg Tab PO 40 mg DAILY MARLEN Administration Clopidogrel Bisulfate 75 mg 02/21/20 09:00 02/21/20 09:56 Clopidogrel Bisulfate 75 Mg Tab PO 75 mg DAILY MARLEN Administration Hydralazine HCl 100 mg 02/21/20 09:00 02/21/20 15:17 Hydralazine 25 Mg Tab PO 100 mg TID MARLEN Administration Dextrose/Sodium Chloride 1,000 mls @ 50 mls/hr 02/21/20 05:15 02/21/20 06:39 D5 1/2 Ns IV 1,000 mls .Q20H MARLEN Administration Labetalol HCl 100 mg 02/21/20 09:00 02/21/20 15:17 Labetalol 100 Mg Tab PO 100 mg TID MARLEN Administration Lorazepam 0.5 mg 02/21/20 11:36 02/21/20 12:23 Lorazepam 2 Mg/Ml Vial SLOW IVP 0.5 mg Q6H PRN Administration Anxiety/Agitation Nifedipine 90 mg 02/21/20 09:00 02/21/20 09:56 Nifedipine Xl 90 Mg Tab PO 90 mg DAILY MARLEN Administration Ranolazine 500 mg 02/21/20 09:00 02/21/20 09:56 Ranolazine 500 Mg Tab PO 500 mg BID MARLEN Administration - Exam General Appearance: NAD, awake alert Eye: PERRL, anicteric sclera ENT: normocephalic atraumatic, moist mucosa Neck - other findings: Large mass to entire right side of neck, firm, nontender Heart: RRR, Respiratory: CTAB, no wheezes, no rales, no ronchi, normal chest expansion, no tachypnea Gastrointestinal: soft, non-tender, non-distended, normal bowel sounds, no palpable masses, no guarding, no rigidity Extremities: no edema Skin: normal turgor, no lesions, no rashes Neurological: Cranial Nerves: cranial nerve grossly intact Sensory: normal sensation to touch Strength: normal tone, normal strength, no muscle wasting Mental status: normal affect, normal behavior, A&O x 3 Cerebellar: Finger nose testing intact. DATA REVIEWED: Labs reviewed were significant for anemia with hemoglobin of 8.8 and hematocrit of 28.8. Chronic kidney disease with a BUN of 37 and creatinine of 1.65, and hyperglycemia at 125. Lab results: WBC 6.0 thou/uL (4.8-10.8) 02/21/20 02:21 Hgb 8.8 g/dL (12.0-16.0) L 02/21/20 02:21 Hct 28.8 % (36.0-47.0) L 02/21/20 02:21 MCV 93.0 fL (78.0-98.0) 02/21/20 02:21 Plt Count 293 thou/uL (130-400) 02/21/20 02:21 Neutrophils % 47.5 % (42.0-75.0) 02/21/20 02:21 Sodium 140 mmol/L (136-145) 02/21/20 02:21 Potassium 4.6 mmol/L (3.5-5.1) 02/21/20 02:21 Chloride 116 mmol/L (98-107) H 02/21/20 02:21 Carbon Dioxide 15 mmol/L (23-31) L 02/21/20 02:21 BUN 37 mg/dL (9.8-20.1) H 02/21/20 02:21 Creatinine 1.65 mg/dL (0.6-1.1) H 02/21/20 02:21 Glucose 125 mg/dL (83-110) H 02/21/20 02:21 Lactic Acid 0.7 mmol/L (0.5-2.2) 02/21/20 02:21 Calcium 8.5 mg/dL (7.8-10.44) 02/21/20 02:21 Total Bilirubin Less than 0.2 mg/dL (0.2-1.2) L 02/21/20 02:21 AST 10 U/L (5-34) 02/21/20 02:21 ALT 7 U/L (8-55) L 02/21/20 02:21 Alkaline Phosphatase 59 U/L (40-110) 02/21/20 02:21 Troponin I Less than 0.010 ng/mL (< 0.028) 02/20/20 19:26 Serum Total Protein 6.6 g/dL (6.0-8.3) 02/21/20 02:21 Albumin 3.3 g/dL (3.4-4.8) L 02/21/20 02:21 Urine Ketones Negative mg/dL (Negative) 02/20/20 20:03 Urine Blood Negative (Negative) 02/20/20 20:03 Urine Nitrite Negative (Negative) 02/20/20 20:03 Ur Leukocyte Esterase Negative Maria E/uL (Negative) 02/20/20 20:03 Urine RBC 0-3 HPF (0-3) 02/20/20 20:03 Urine WBC 0-3 HPF (0-3) 02/20/20 20:03 Ur Squamous Epith Cells 0-3 HPF (0-3) 02/20/20 20:03 Urine Bacteria None Seen HPF (None Seen) 02/20/20 20:03 ASSESSMENT AND PLAN: (1) Orthostatic hypertension Code(s): I10 - ESSENTIAL (PRIMARY) HYPERTENSION Status: Acute (2) WANG (acute kidney injury) Code(s): N17.9 - ACUTE KIDNEY FAILURE, UNSPECIFIED Status: Acute (3) Mass of right side of neck Code(s): R22.1 - LOCALIZED SWELLING, MASS AND LUMP, NECK Status: Acute (4) CAD (coronary artery disease) Code(s): I25.10 - ATHSCL HEART DISEASE OF [place] CORONARY ARTERY W/O ANG PCTRS Status: Chronic (5) Acute on chronic renal insufficiency Code(s): N28.9 - DISORDER OF KIDNEY AND URETER, UNSPECIFIED; N18.9 - CHRONIC KIDNEY DISEASE, UNSPECIFIED Status: Acute (6) Diabetes mellitus Code(s): E11.9 - TYPE 2 DIABETES [place]LL[place] WITHOUT COMPLICATIONS Status: Chronic (7) GERD (gastroesophageal reflux disease) Code(s): K21.9 - GASTRO-ESOPHAGEAL REFLUX DISEASE WITHOUT ESOPHAGITIS Status: Chronic (8) Hypertension Code(s): I10 - ESSENTIAL (PRIMARY) HYPERTENSION Status: Chronic Ms. Idalia Pham is consulted for feeling as if her head is in a slow motion with a feeling of cold and generalized malaise all over. The patient denies any focal neurological symptoms. Most likely secondary to dehydration since symptoms resolved after intravenous fluid administration. The symptoms are also related to orthostatic hypotension since she was found to have continued medical management of orthostatic hypotension per primary team. This seems unlikely secondary to acute intracranial process. MRI of the brain reviewed, which was negative for acute intracranial pathology. Echocardiogram was also unremarkable. MRI of the orbit, face, and neck reviewed. Neck MRI reviewed just to evaluate for this neck mass, which showed extremely vascular mass in the right aspect of the neck. 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 There is splaying of the carotid artery, which may be due to carotid body tumor. Consider Surgery input. Neuro checks every 4 hours. Continue medical management per primary team. We will continue home medications. Plan discussed with the patient and with the nursing staff. We will continue to follow. Thank you for the consult. Job ID: [id number] [id number]
--- NOTE | 2020-02-21 20:24 | PDOC.HOSPP ---
- Subjective Encounter Date: 02/21/20 Encounter Time: 08:20 Subjective: Reports her head is still "rolling". Denies chest pain, shortness of breath, abdominal pain, dysuria. Reports right sided neck mass has been present since she was younger. - Objective Vital Signs & Weight: Vital Signs (12 hours) Temp Pulse Pulse Pulse Resp BP BP 02/21/20 19:50 98.1 F 66 16 02/21/20 16:00 97.7 F 53 L 20 02/21/20 15:17 63 141/57 H 02/21/20 12:00 98.1 F 66 22 H 02/21/20 11:04 63 66 112/57 L 02/21/20 08:49 BP BP Pulse Ox 02/21/20 19:50 145/70 H 95 02/21/20 16:00 134/54 L 93 L 02/21/20 15:17 02/21/20 12:00 114/51 L 96 02/21/20 11:04 117/52 L 02/21/20 08:49 94 L Weight Weight 182 lb 14.4 oz I&O: 02/20/20 02/21/20 02/22/20 06:59 06:59 06:59 Intake Total 1517 Output Total 625 Balance 892 Result Diagrams: 02/21/20 02:21 02/21/20 02:21 Additional Labs: Accuchecks 02/21/20 02/21/20 02/21/20 20:06 16:51 10:53 POC Glucose 108 H 118 H 94 02/21/20 06:41 POC Glucose 71 Hospitalist ROS - Review of Systems Constitutional: denies: fever, chills Eyes: denies: vision change ENT: denies: ear pain, nose congestion Respiratory: denies: cough, shortness of breath Cardiovascular: denies: chest pain, palpitations Gastrointestinal: denies: nausea, vomiting, abdominal pain Genitourinary: denies: dysuria Neurological: denies: weakness, numbness Other: dizziness - Medication Medications: Active Medications Generic Name Dose Route Start Last Admin Trade Name Freq PRN Reason Stop Dose Admin Aspirin 81 mg 02/21/20 09:00 02/21/20 09:55 Aspirin 81 Mg Enteric Coated Tablet PO 81 mg DAILY MARLEN Administration Atorvastatin Calcium 40 mg 02/21/20 09:00 02/21/20 09:56 Atorvastatin Calcium 40 Mg Tab PO 40 mg DAILY MARLEN Administration Clopidogrel Bisulfate 75 mg 02/21/20 09:00 02/21/20 09:56 Clopidogrel Bisulfate 75 Mg Tab PO 75 mg DAILY MARLEN Administration Hydralazine HCl 100 mg 02/21/20 09:00 02/21/20 15:17 Hydralazine 25 Mg Tab PO 100 mg TID MARLEN Administration Dextrose/Sodium Chloride 1,000 mls @ 50 mls/hr 02/21/20 05:15 02/21/20 06:39 D5 1/2 Ns IV 1,000 mls .Q20H MARLEN Administration Labetalol HCl 100 mg 02/21/20 09:00 02/21/20 15:17 Labetalol 100 Mg Tab PO 100 mg TID MARLEN Administration Lorazepam 0.5 mg 02/21/20 11:36 02/21/20 12:23 Lorazepam 2 Mg/Ml Vial SLOW IVP 0.5 mg Q6H PRN Administration Anxiety/Agitation Nifedipine 90 mg 02/21/20 09:00 02/21/20 09:56 Nifedipine Xl 90 Mg Tab PO 90 mg DAILY MARLEN Administration Ranolazine 500 mg 02/21/20 09:00 02/21/20 09:56 Ranolazine 500 Mg Tab PO 500 mg BID MARLEN Administration - Exam General Appearance: NAD, awake alert Eye: PERRL ENT: normocephalic atraumatic Heart: RRR, no murmur Respiratory: CTAB, no wheezes Gastrointestinal: soft, non-tender, non-distended Extremities: no cyanosis, no edema Neurological: cranial nerve grossly intact, no weakness, no focal deficits Musculoskeletal: normal tone, normal strength Psychiatric: normal affect, normal behavior, A&O x 3 Hosp A/P (1) Orthostatic hypertension Code(s): I10 - ESSENTIAL (PRIMARY) HYPERTENSION Status: Acute (2) WANG (acute kidney injury) Code(s): N17.9 - ACUTE KIDNEY FAILURE, UNSPECIFIED Status: Acute (3) Mass of right side of neck Code(s): R22.1 - LOCALIZED SWELLING, MASS AND LUMP, NECK Status: Acute (4) CAD (coronary artery disease) Code(s): I25.10 - ATHSCL HEART DISEASE OF [place] CORONARY ARTERY W/O ANG PCTRS Status: Chronic (5) Acute on chronic renal insufficiency Code(s): N28.9 - DISORDER OF KIDNEY AND URETER, UNSPECIFIED; N18.9 - CHRONIC KIDNEY DISEASE, UNSPECIFIED Status: Acute (6) Diabetes mellitus Code(s): E11.9 - TYPE 2 DIABETES MELLITUS WITHOUT COMPLICATIONS Status: Chronic (7) GERD (gastroesophageal reflux disease) Code(s): K21.9 - GASTRO-ESOPHAGEAL REFLUX DISEASE WITHOUT ESOPHAGITIS Status: Chronic (8) Hypertension Code(s): I10 - ESSENTIAL (PRIMARY) HYPERTENSION Status: Chronic - Plan CVA evaluation - MRI brain - neurology consult Mass of neck - MRI ordered WANG - fluids - recheck in AM - avoid nephrotoxic agents and contrast will continue home meds as above Likely discharge in AM in WANG improves
[2020-02-22] MEDS: Dextrose 5 %-0.45 % NaCl 1,000 ML IV SCH ×2 (04:43→20:42)
[2020-02-22 06:18] LABS: #Eosinphils 0.4 thou/uL (0.0-0.7); #Lymphocytes 2.1 thou/uL (1.20-3.40); #Monocytes 0.7 thou/uL (0.11-0.59); #Neutrophils 2.8 thou/uL (1.40-6.50); %Basophils 0.2 % (0.0-1.0); %Eosinophils 7.2 % (0.0-10.0); %Lymphocytes 35.2 % (21.0-51.0); %Neutrophils 46.4 % (42.0-75.0); Hemoglobin 8.5 g/dL (12.0-16.0); Mean Corpuscular HGB CONC 29.8 g/dL (32.0-36.0); Mean Platelet Volume 8.3 fL (7.4-10.4); Platelet Count 289 thou/uL (130-400); RBC Distribution Width 16.6 % (11.5-14.5); Red Blood Cell (RBC) Count 3.02 mill/uL (4.20-5.40)
[2020-02-22 06:31] LABS: Anion Gap 13 mmol/L (10-20); BUN (Urea Nitrogen) 31 mg/dL (9.8-20.1); Calc. Creatinine Clearance 42 mL/min (70-130); Calcium 8.4 mg/dL (7.8-10.44); Carbon Dioxide 16 mmol/L (23-31); Chloride 116 mmol/L (98-107); Estimated GFR-MDRD 39; Glucose 80 mg/dL (83-110); Potassium 5.1 mmol/L (3.5-5.1); Sodium 140 mmol/L (136-145)
[2020-02-22] MEDS: Aspirin 81 mg Enteric Coated Tablet PO SCH (09:12)
[2020-02-22] MEDS: hydrALAZINE 25 MG TAB PO SCH ×3 (09:13→20:40)
[2020-02-22] MEDS: NIFEdipine XL 90 MG TAB PO SCH (09:14)
[2020-02-22] MEDS: Labetalol 100 MG TAB PO SCH ×3 (09:14→20:41)
[2020-02-22] MEDS: Atorvastatin Calcium 40 MG TAB PO SCH (09:15)
[2020-02-22] MEDS: Clopidogrel Bisulfate 75 MG TAB PO SCH (09:15)
--- NOTE | 2020-02-22 12:22 | EKG ---
Test Reason : Blood Pressure : / mmHG Vent. Rate : 060 BPM Atrial Rate : 060 BPM P-R Int : 158 ms QRS Dur : 130 ms QT Int : 478 ms P-R-T Axes : 022 -28 031 degrees QTc Int : 478 ms Normal sinus rhythm Right bundle branch block Minimal voltage criteria for LVH, may be normal variant Abnormal ECG Confirmed by EBONIE CONTRERAS ([id number]), news assignment editor TREMAINE FREEDMAN ([id number]) on 02/22/2020 12:21:58 PM Referred By: Confirmed By:EBONIE CONTRERAS
--- NOTE | 2020-02-22 16:05 | PDOC.HOSPP ---
- Subjective Encounter Date: 02/22/20 Encounter Time: 10:30 Subjective: pt up in bed states that she is having the same symptoms when she came in which is "lawnmower going off on her right ear". - Objective Vital Signs & Weight: Vital Signs (12 hours) Temp Pulse Resp BP BP BP Pulse Ox 02/22/20 15:22 98.6 F 87 18 153/62 H 96 02/22/20 11:14 97.8 F 62 16 114/52 L 98 02/22/20 10:07 152/69 H 132/64 142/60 H 02/22/20 08:20 97.6 F 64 16 164/70 H 96 02/22/20 04:52 98.0 F 62 16 152/58 H 96 Weight Weight 182 lb 14.4 oz I&O: 02/21/20 02/22/20 02/23/20 06:59 06:59 06:59 Intake Total 2367 Output Total 625 Balance 1742 Result Diagrams: 02/22/20 05:27 02/22/20 05:27 Additional Labs: Accuchecks 02/22/20 02/22/20 02/21/20 11:21 05:45 20:06 POC Glucose 107 H 78 108 H 02/21/20 16:51 POC Glucose 118 H Hospitalist ROS - Review of Systems Respiratory: denies: cough, dry, shortness of breath, hemoptysis, SOB with excertion, pleuritic pain, sputum, wheezing, other Cardiovascular: denies: chest pain, palpitations, orthopnea, paroxysmal noc. dyspnea, edema, light headedness, other Gastrointestinal: denies: nausea, vomiting, abdominal pain, diarrhea, constipation, melena, hematochezia, other - Medication Medications: Active Medications Generic Name Dose Route Start Last Admin Trade Name Freq PRN Reason Stop Dose Admin Aspirin 81 mg 02/21/20 09:00 02/22/20 09:12 Aspirin 81 Mg Enteric Coated Tablet PO 81 mg DAILY MARLEN Administration Atorvastatin Calcium 40 mg 02/21/20 09:00 02/22/20 09:15 Atorvastatin Calcium 40 Mg Tab PO 40 mg DAILY MARLEN Administration Clopidogrel Bisulfate 75 mg 02/21/20 09:00 02/22/20 09:15 Clopidogrel Bisulfate 75 Mg Tab PO 75 mg DAILY MARLEN Administration Hydralazine HCl 100 mg 02/21/20 09:00 02/22/20 09:13 Hydralazine 25 Mg Tab PO 100 mg TID MARLEN Administration Dextrose/Sodium Chloride 1,000 mls @ 50 mls/hr 02/21/20 05:15 02/22/20 04:43 D5 1/2 Ns IV 1,000 mls .Q20H MARLEN Administration Labetalol HCl 100 mg 02/21/20 09:00 02/22/20 09:14 Labetalol 100 Mg Tab PO 100 mg TID MARLEN Administration Lorazepam 0.5 mg 02/21/20 11:36 02/21/20 12:23 Lorazepam 2 Mg/Ml Vial SLOW IVP 0.5 mg Q6H PRN Administration Anxiety/Agitation Nifedipine 90 mg 02/21/20 09:00 02/22/20 09:14 Nifedipine Xl 90 Mg Tab PO 90 mg DAILY MARLEN Administration Ranolazine 500 mg 02/21/20 09:00 02/22/20 09:15 Ranolazine 500 Mg Tab PO 500 mg BID MARLEN Administration - Exam ENT - other findings: right neck area has some fullness, no pain Neck: negative: supple, symmetric, no JVD, no thyromegaly, no lymphadenopathy, no carotid bruit, JVD Heart: negative: RRR, no murmur, no gallops, no rubs, normal peripheral pulses, irregular, diminshed peripheral pulses, murmur present, II/IV, III/IV Respiratory: negative: CTAB, no wheezes, no rales, no ronchi, normal chest expansion, no tachypnea, normal percussion, rales, rhonchi, tachypneic, wheezes Gastrointestinal: negative: soft, non-tender, non-distended, normal bowel sounds, no palpable masses, no hepatomegaly, no splenomegaly, no bruit, no guarding, no rigidity, tender to palpation, distended, diminished bowl sounds, voluntary guarding Hosp A/P (1) Tinnitus Code(s): H93.19 - TINNITUS, UNSPECIFIED EAR Status: Acute (2) WANG (acute kidney injury) Code(s): N17.9 - ACUTE KIDNEY FAILURE, UNSPECIFIED Status: Acute (3) Mass of right side of neck Code(s): R22.1 - LOCALIZED SWELLING, MASS AND LUMP, NECK Status: Acute (4) CAD (coronary artery disease) Code(s): I25.10 - ATHSCL HEART DISEASE OF [place] CORONARY ARTERY W/O ANG PCTRS Status: Chronic (5) Diabetes mellitus Code(s): E11.9 - TYPE 2 DIABETES MELLITUS WITHOUT COMPLICATIONS Status: Chronic (6) Hypertension Code(s): I10 - ESSENTIAL (PRIMARY) HYPERTENSION Status: Chronic - Plan MRI/echo and carotid no acute findings. 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 However she started to have similar symptoms as she did when she was admitted. Neurology has consulted ent however given how vascular this tumor if needed to be removed will need tertiary center. will call ENT.
[2020-02-23 04:00] VITALS: BMI 33.7
[2020-02-23] MEDS: Dextrose 5 %-0.45 % NaCl 1,000 ML IV SCH (05:09)
[2020-02-23 08:05] VITALS: TEMP 98.1
[2020-02-23] MEDS: Atorvastatin Calcium 40 MG TAB PO SCH (09:34)
[2020-02-23] MEDS: Clopidogrel Bisulfate 75 MG TAB PO SCH (09:35)
[2020-02-23] MEDS: Labetalol 100 MG TAB PO SCH (09:36)
[2020-02-23] MEDS: NIFEdipine XL 90 MG TAB PO SCH (09:37)
[2020-02-23] MEDS: hydrALAZINE 25 MG TAB PO SCH (09:37)
[2020-02-23] MEDS: Aspirin 81 mg Enteric Coated Tablet PO SCH (09:49)
[2020-02-23 12:01] VITALS: BP 131/56
--- NOTE | 2020-02-23 13:50 | CON ---
DATE OF CONSULTATION: HISTORY OF PRESENT ILLNESS: This is a 74-year-old female admitted because she had been feeling poorly. She was diagnosed with COVID about 2 months ago and briefly hospitalized for that. She complained of feeling a swishing sound in her head and no hemispheric symptoms. While in the hospital, she was noted to have a right neck mass that the patient states has been there most of her life, but she has difficulty quantifying when she first noticed it or whether it has grown significantly. PAST MEDICAL HISTORY: Otherwise, significant for the recent COVID; coronary artery disease with stents placed either in [place] or [place], she cannot remember; hypertension; type 2 diabetes mellitus; chronic kidney disease with a creatinine in the 1.5 to 3 range; anxiety disorder. PAST SURGICAL HISTORY: Includes only female surgery and a previously noted cardiac stent. MEDICATIONS: Prior to admission include: 1. Ranexa. 2. Clonidine. 3. Plavix. 4. Protonix. 5. Diltiazem. 6. Atorvastatin. 7. Linzess. 8. Aspirin. 9. Labetalol. 10. Nifedipine. ALLERGIES: TO CODEINE. SOCIAL HISTORY: She lives with her who has had difficulty getting around and she herself uses a cane for ambulation. PHYSICAL EXAMINATION: VITAL SIGNS: Height 5 feet 2 inches, weight 184. NECK: She has an obvious right-sided neck mass with a palpable thrill and an audible continuous bruit. CARDIAC: Reveals a systolic murmur grade 2 to 3/6 at the right upper sternal border. LUNGS: Clear to auscultation. ABDOMEN: Soft and nontender. EXTREMITIES: She has palpable pedal pulses bilaterally with no peripheral edema. LABORATORY DATA: MRI was reviewed. 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 She has had several hospital admissions this year and no note has been made of her neck mass. 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 In any event, it is quite vascular and probably would require preoperative embolization and will consider options with her as an outpatient. Job ID: [id number]
--- NOTE | 2020-02-23 21:59 | DIS ---
DATE OF ADMISSION: 02/20/2020 DATE OF DISCHARGE: 02/23/2020 DISCHARGE DIAGNOSES: The following; 1. Tinnitus. 2. Acute kidney injury. 3. Mass in the right side of the neck. 4. Coronary artery disease. 5. Diabetes. 6. Hypertension. HOSPITAL COURSE: The patient is a 74-year-old female, who initially presented to the hospital with complaints of just generalized weakness and also some ringing in the ER. She later told me that she felt that it was a lawnmower going on her right ear. 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 The patient states that she has had this for a pretty long time, and when I talked with her daughter she stated that she had been sent to physicians in the past. However, since this was not a problem or was not giving her any symptoms, it was left alone. However, now she comes in on the same side with tinnitus. She at this time underwent an evaluation with an MRI of the brain, which indicated an empty sella and also evidence of just mucosal edema in the mastoid air cells; however, no acute infarct; and also had an echocardiogram which indicated an EF of 60% to 65%, the left atrium was mildly dilated, otherwise, everything appeared to be stable. She had some [id number] tricuspid regurgitation. Initially, ENT was consulted for this mass. However, again this was not something which was acute. She has been having this for some time. However, now she is being symptomatic. I did consult CT surgery, who recommended outpatient followup, and I have updated this to the patient's daughter and the patient. I recommended to the patient's daughter that she needs to follow up with Dr. Melton next week and also with her primary care. The patient at this time was discharged home. Her home medications have been resumed. No changes have been made. PHYSICAL EXAMINATION: VITAL SIGNS: Temperature of 98.1, 65, 20, 97% on room air, and 151/58. GENERAL: She is awake, alert, and oriented x3. Does not appear in distress. CARDIOVASCULAR: S1 and S2 present. No murmurs, rubs, or gallops. Again, she will be discharged home to follow up with her primary and CT surgery. Job ID: [id number]
--- NOTE | 2020-02-25 12:53 | PQF ---
CLINICAL DOCUMENTATION CLARIFICATION FORM: Dear : Doc Tomlin MD Date / Time: 02/25/2020 Please exercise your independent, professional judgment in responding to the clarification form. Clinical indicators are provided on the bottom of this form for your review Please check appropriate box(es): [ ] Weakness due to Dehydration [ ] Weakness due to Orthostatic hypotension [ ] Weakness due to Tinnitus [ ] Weakness due to WANG [ ] Other diagnosis (Please specify if any) [ ] Unable to determine Physician Signature: Date/Time: For continuity of documentation, please document condition throughout progress notes and discharge summary. Thank You. To be completed by CDI/Coding staff for physician review: Present Clinical Indicators - Signs / Symptoms / Labs Results and Location in Medical Record [x ] Presented to the hospital with complaints of just generalized weakness and some ringing in the ER Discharge summary on [x ] Malaise, potentially associated with mild dehydration H&P on 02/19 [ x ] WANG, continue gentle dehydration H&P on 02/19 [ x ] Most likely secondary to dehydration since symptoms resolved after intravenous fluid administration Consult on 02/20 [x ] The symptoms are also related to orthostatic hypotension per primary team. Consult on 02/20 [x ] Tinnitus Discharge summary on Present Risk Factors Results and Location in Medical Record [ x ] Aged person: 74 yrs H&P on 02/19 [ ] [ ] [ ] Present Treatments Results and Location in Medical Record [ x] Dextrose 5%-0.45% NaCl 1,000 ml Medication from 02/20 to 02/22 [ x] Sodium chloride 0.9% Medication on 02/20 [ x ] Clonidine 0.2mg Medication from 02/20 to 02/22 [ ] CDS/Foley Artist Signature: SHAISTA Phone #: Date/Time: 02/25/2020 This is a permanent part of the Medical Record [facility]
== END 2020-02-23 12:08 | disposition home or self-care (01) | DRG 155 ==
LOC: ERS 18:33 → 2SE 21:21
PROVIDERS: ADMIT Internal Medicine; ATTEND Internal Medicine
DX: H93.19 Tinnitus, unspecified ear (principal); N17.9 Acute kidney failure, unspecified; I95.1 Orthostatic hypotension; E86.0 Dehydration; I25.10 Atherosclerotic heart disease of native coronary artery without angina pectoris; K21.9 Gastro-esophageal reflux disease without esophagitis; E78.00 Pure hypercholesterolemia, unspecified; F41.9 Anxiety disorder, unspecified; R53.81 Other malaise; R22.1 Localized swelling, mass and lump, neck; E87.5 Hyperkalemia; N18.9 Chronic kidney disease, unspecified; D64.9 Anemia, unspecified; E11.65 Type 2 diabetes mellitus with hyperglycemia; I12.9 Hypertensive chronic kidney disease with stage 1 through stage 4 chronic kidney disease, or unspecified chronic kidney disease; E11.22 Type 2 diabetes mellitus with diabetic chronic kidney disease; Z88.6 Allergy status to analgesic agent; Z79.899 Other long term (current) drug therapy; Z79.82 Long term (current) use of aspirin; Z95.5 Presence of coronary angioplasty implant and graft
CPT/HCPCS: 36415; 36416; 70450; 70543; 70551; 71046; 76536; 80048; 80053; 81003; 81015; 83605; 83735; 84443; 84484; 85025; 85610; 85730; 93005; 93306; 96361; 96374; 96375; A9579; J2060; J2405